=== PATIENT | female | born 1940 | race Caucasian/White ===

== ENCOUNTER → 2016-05-06 | Outpatient (CLI) | payer MEDICARE, OTHER ==
--- NOTE | 2016-05-06 14:13 | BD ---
EXAMINATION TYPE: MG DEXA axial skeleton. DATE OF EXAM: 05/06/2016 10:58 A CLINICAL HISTORY: Osteoporosis, M 80.O Height: 63.25inches Weight: 199 FRAX RISK QUESTIONS: Alcohol (3 or more units per day): no Family History (Parent hip fracture): no Glucocorticoids (More than 3mos): no (Ex: prednisone, prednisolone, methylprednisolone, dexamethasone, and hydrocortisone). History of Fracture in Adulthood: yes Secondary Osteoporosis: 1. Type 1 Diabetes: no 2. Hyperthyroidism: no 3. Menopause before 45: hysterectomy/menopause age 44 4. Malnutrition: no 5. Chronic liver disease: no Rheumatoid Arthritis: no Current Tobacco Use: no RISK FACTORS HISTORY OF: History of Wrist Fracture: yes When: about 17 years ago Surgery to (Wrist (left): yes When: about 17 years ago Other Fractures : ankle When: when in 40's, then again about 10 years later Family History of Osteoporosis: unknown Drink Alcohol: no Tobacco Use: quit about 2000 Active: yes Diet low in dairy products/other sources of calcium: at least one serving a day Postmenopausal woman: yes Take estrogen and/or progesterone medications: not now How long: about 22 years...last use age 67 Lost more than 2 inches in height since high school: yes Frequent falls: no Poor Health: no Hyperparathyroidism: no Adrenal Insufficiency: no MEDICATIONS: Prednisone or other steroids: no Thyroid Medications: no Osteoporosis Medications: no Additional Medications: blood pressure meds, calcium EXAM MEASUREMENTS: Bone mineral densitometry was performed using the [employer]. Bone mineral density as measured about the Lumbar spine is: ----- L1-L4(G/cm2): 1.032 T Score Values are as follows: ----- L2: -0.9 ----- L3: -1.0 ----- L4: -1.7 ----- L1-L4: -1.2 Bone mineral density has: Decreased -1.6% since study of: 03/13/2011 Bone mineral density about the R hip (g/cm2): 0.854 Bone mineral density about the L hip (g/cm2): 0.895 T Score values are as follows: -----R Neck: -1.3 -----L Neck: -1.0 -----R Intertrochanter: -1.2 -----L Intertrochanter: -0.9 Bone mineral density has: Decreased -1.0% since study of: 03/13/2011 IMPRESSION: Osteopenia (T Score between -2.5 and -1 as noted by T score values L4 & Right Hip There is slightly increased risk of fracture and the patient may be considered for treatment. Re-Screen 1-2 years. NOTE: T-SCORE=SD OF THE YOUNG ADULT MEAN.
--- NOTE | 2016-05-07 08:52 | MM ---
Reason for exam: screening (asymptomatic). Last mammogram was performed 1 year ago. History: Patient is postmenopausal and has history of other cancer at age 61. Took estrogen for 22 years. Physical Findings: A clinical breast exam by your physician is recommended on an annual basis and results should be correlated with mammographic findings. MG Screening Mammo w CAD Bilateral CC and MLO view(s) were taken. Prior study comparison: April 29, 2015, bilateral MG screening mammo w CAD. April 11, 2014, bilateral MG screening mammo w CAD. There are scattered fibroglandular densities. Finding: There are typically benign calcifications in both breasts. There is a chronic nodularity in the right breast. No significant changes in finding since April 29, 2015 and April 11, 2014. ASSESSMENT: Benign, BI-RAD 2 RECOMMENDATION: Routine screening mammogram of both breasts in 1 year.
== END | disposition home or self-care (01) ==
LOC: RADMAMWWP 10:54
PROVIDERS: ATTEND Internal Medicine Geriatric Medicine
DX: Z12.31 Encounter for screening mammogram for malignant neoplasm of breast (principal); M85.89 Other specified disorders of bone density and structure, multiple sites; M81.0 Age-related osteoporosis without current pathological fracture
CPT/HCPCS: 77080; G0202

== ENCOUNTER 2016-12-11 11:01 | Inpatient (IN) | payer MEDICARE, OTHER ==
[2016-12-11] MEDS ORDERED: ONDANSETRON 4 MG/2 ML VIAL IVP STA (13:14)
[2016-12-11] MEDS ORDERED: SODIUM CHLORIDE 0.9% 1,000 ML IV STA ×2 (13:14)
[2016-12-11 13:34] LABS: Anisocytosis Slight; Basophils % (A) 0 %; CHCM 35.5; Eosinophils % (A) 0 %; HDW 3.54; Luc # (Auto) 0.11; Luc % (Auto) 2; Lymphocytes # (A) 0.5 k/uL (1.0-4.8); Lymphocytes % (A) 12 %; MCH 31.8 pg (25.0-35.0); MCHC 33.9 g/dL (31.0-37.0); MCV 93.8 fL (80.0-100.0); Monocytes # (A) 0.6 k/uL (0-1.0); Monocytes % (A) 12 %; Neutrophils # (A) 3.3 k/uL (1.3-7.7); Neutrophils % (A) 73 %; Poikilocytosis Slight; RBC 5.01 m/uL (3.80-5.40); RDW 16.7 % (11.5-15.5); WBC 4.5 k/uL (3.8-10.6); WBC (Perox) 4.25
[2016-12-11 13:42] LABS: ALT 54 U/L (9-52); AST 42 U/L (14-36); Alkaline Phosphatase 81 U/L (38-126); Amylase <30 U/L (30-110); Anion Gap 12 mmol/L; Blood Urea Nitrogen 32 mg/dL (7-17); Calcium 9.8 mg/dL (8.4-10.2); Carbon Dioxide 27 mmol/L (22-30); Chloride 99 mmol/L (98-107); Glucose 224 mg/dL (74-99); Non-African American GFR(MDRD) >60 (>60 ml/min/1.73 sqM); Potassium 4.1 mmol/L (3.5-5.1); Sodium 138 mmol/L (137-145); Total Protein 7.7 g/dL (6.3-8.2)
--- NOTE | 2016-12-11 14:17 | XR ---
EXAMINATION TYPE: XR KUB DATE OF EXAM: 12/11/2016 2:09 PM CLINICAL HISTORY: Abdominal pain and constipation TECHNIQUE: Single supine KUB image of the abdomen is obtained. COMPARISON: None. FINDINGS: Multiple air-fluid levels predominating within large bowel, however some are seen within sm all bowel loops that are mildly dilated measuring 3.9 cm. Large bowel is nondilated measuring 7.8 cm at the cecum. Right upper quadrant scattered surgical clips are seen as well as atheromatous changes of the splenic artery. Surgical clips are also noted within the right hemipelvis as well as atheromat ous changes of the femoral arteries. There is a paucity of bowel gas within the rectum and a moderate amount of retained stool within the visualized colon. Degenerative changes are appreciated of the thoracolumbar spine. IMPRESSION: Air-fluid levels within mildly dilated small bowel and nondilated large bowel, most suggestive of ile us although early partial small bowel obstruction is a consideration. Short-term progress abdominal r adiographs are recommended to evaluate for progression/resolution.
--- NOTE | 2016-12-11 14:21 | ED ---
Abdominal Pain HPI - General Source: patient, RN notes reviewed, old records reviewed Mode of arrival: wheelchair Limitations: no limitations <Nuzhat Kohli - Last Filed: 12/11/16 15:09> <Arturo Quijano - Last Filed: 12/11/16 15:18> - General Chief Complaint: Abdominal Pain Stated Complaint: NAUSEA, VOMITING Time Seen by Provider: 12/11/16 12:56 - History of Present Illness Initial Comments: 76-year-old female presenting to the emergency Department chief complaint of lack of bowel movements for the past 7 days. Patient reports that she's now started to vomit. She reports she has a history of hiatal hernia which was repaired a few years ago. She states that since then she's HAD some problems with having bowel movements. Patient reports that over the past 7 days she has not passed any gas, and feels very full and distended. Patient reports that 3 days ago she did try to take Dulcolax, without any relief. Patient reports that her vomit has started to turn clear, denies hematemesis. Surgical history includes hernia repair, right-sided nephrectomy, cholecystectomy, total hysterectomy. (Nuzhat Kohli) - Related Data Home Medications Medication Instructions Recorded Confirmed Calcium Carbonate [Calcium] 600 mg PO BID 12/11/16 12/11/16 Fish Oil/Dha/Epa [Fish Oil 1,200 1 cap PO BID 12/11/16 12/11/16 mg Fish Oil] Lactulose 20 gm PO DAILY 12/11/16 12/11/16 Metoclopramide [Reglan] 5 mg PO DAILY 12/11/16 12/11/16 Metoprolol Succinate [Toprol XL] 25 mg PO DAILY 12/11/16 12/11/16 Multivitamins, Thera [Multivitamin 1 tab PO DAILY 12/11/16 12/11/16 (formulary)] Omeprazole [PriLOSEC] 40 mg PO DAILY 12/11/16 12/11/16 Potassium Chloride [K-Tab ER] 10 meq PO DAILY 12/11/16 12/11/16 Tolterodine Tartrate [Detrol LA] 4 mg PO BID 12/11/16 12/11/16 Triamterene-Hctz 37.5-25Mg 1 tab PO DAILY 12/11/16 12/11/16 [Maxzide 37.5-25] cloNIDine HCL [Catapres] 0.1 mg PO BID 12/11/16 12/11/16 metFORMIN HCL [Glucophage] 500 mg PO BID 12/11/16 12/11/16 Allergies Allergy/AdvReac Type Severity Reaction Status Date / Time No Known Allergies Allergy Verified 12/11/16 14:14 Review of Systems ROS Other: All systems not noted in ROS Statement are negative. <SeunNuzhat - Last Filed: 12/11/16 15:09> ROS Other: All systems not noted in ROS Statement are negative. <Arturo Quijano - Last Filed: 12/11/16 15:18> ROS Statement: Those systems with pertinent positive or pertinent negative responses have been documented in the HPI. Past Medical History Past Medical History: Cancer, Diabetes Mellitus, Hypertension Additional Past Medical History / Comment(s): HH, kidney and bladder cancer Past Surgical History: Cholecystectomy, Hernia Repair, Hysterectomy Additional Past Surgical History / Comment(s): kidney removed Past Psychological History: No Psychological Hx Reported Smoking Status: Former smoker Past Alcohol Use History: None Reported Past Drug Use History: None Reported <Valencia Kohliily - Last Filed: 12/11/16 15:09> General Exam Limitations: no limitations General appearance: alert, in no apparent distress Head exam: Present: atraumatic, normocephalic, normal inspection Eye exam: Present: normal appearance, PERRL, EOMI. Absent: scleral icterus, conjunctival injection, periorbital swelling ENT exam: Present: normal exam, mucous membranes moist Neck exam: Present: normal inspection. Absent: tenderness, meningismus, lymphadenopathy Respiratory exam: Present: normal lung sounds bilaterally. Absent: respiratory distress, wheezes, rales, rhonchi, stridor Cardiovascular Exam: Present: regular rate, normal rhythm, normal heart sounds. Absent: systolic murmur, diastolic murmur, rubs, gallop, clicks GI/Abdominal exam: Present: soft, distended, diminished bowel sounds. Absent: tenderness, guarding, rebound, rigid Extremities exam: Present: normal inspection, full ROM, normal capillary refill. Absent: tenderness, pedal edema, joint swelling, calf tenderness Back exam: Present: normal inspection Neurological exam: Present: alert, oriented X3, CN II-XII intact Psychiatric exam: Present: normal affect, normal mood Skin exam: Present: warm, dry, intact, normal color. Absent: rash <Nuzhat Kohli - Last Filed: 12/11/16 15:09> <Arturo Quijano - Last Filed: 12/11/16 15:18> - General Exam Comments Initial Comments: 76-year-old female, patient does not appear to be in any acute distress. ( Nuzhat Kohli) Medical Decision Making - Lab Data Result diagrams: 12/11/16 13:23 12/11/16 13:23 - Radiology Data Radiology results: report reviewed <Nuzhat Kohli - Last Filed: 12/11/16 15:09> - Lab Data Result diagrams: 12/11/16 13:23 12/11/16 13:23 <Arturo Quijano - Last Filed: 12/11/16 15:18> - Medical Decision Making 76-year-old female presents the ED chief complaint of unable to have a bowel movement for the past 7 days. She did try to take Dulcolax at home and an enema but did not have any relief. Patient is somewhat tender in the abdomen. Difficult to hear bowel sounds. Patient abdominal x-ray does show air-fluid levels, suggesting ileus or possible SBO. Patient received NG tube. 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 (Nuzhat Kohli) Medical decision making; the patient 76-year-old female who reports that she has not had a bowel movement nor passed flatus for 7 days. 2 days ago she started having nausea and vomiting. At that time she had taken 3 Dulcolax and fleets enema without any relief. The patient is not taking any pain medications that would normally cause constipation. Denies problems with constipation. The patient's past surgeries include hiatal hernia repair by Dr. Ch, she's also had a gallbladder, appendectomy and hysterectomy. Patient's white count is 4.5 hemoglobin 16 hematocrit of 47. Amylase lipase normal limits. BUN 32 creatinine 0.7 GFR greater than 60. Glucose elevated at 224. X -ray of the abdomen was done and reviewed by radiologist's final impression is air fluid levels within the mildly dilated small bowel and nondilated large bowel most suggestive of ileus although early partial small bowel obstruction is a consideration. Short-term progress abdominal radiographs are recommended to evaluate for progression resolution. As read by Dr. Carrillo I examined the patient she is tender to palpation mild voluntary guarding in the epigastric region with hypoactive bowel sounds. Vital signs are reviewed. I discussed the case with Dr. Montes on-call for Dr. Rg. Patient be admitted to the general surgeon Dr. Ch. Dr. Mosley was notified and requests that Dr. Dr. Salazar be notified. Dr. Salazar was notified. (Arturo Quijano) - Lab Data Lab Results 12/11/16 12/11/16 12/11/16 Range/Units 13:23 13:23 15:00 WBC 4.5 (3.8-10.6) k/uL RBC 5.01 (3.80-5.40) m/uL Hgb 16.0 (11.4-16.0) gm/dL Hct 47.0 H (34.0-46.0) % MCV 93.8 (80.0-100.0) fL MCH 31.8 (25.0-35.0) pg MCHC 33.9 (31.0-37.0) g/dL RDW 16.7 H (11.5-15.5) % Plt Count 231 (150-450) k/uL Neutrophils % 73 % Lymphocytes % 12 % Monocytes % 12 % Eosinophils % 0 % Basophils % 0 % Neutrophils # 3.3 (1.3-7.7) k/uL Lymphocytes # 0.5 L (1.0-4.8) k/uL Monocytes # 0.6 (0-1.0) k/uL Eosinophils # 0.0 (0-0.7) k/uL Basophils # 0.0 (0-0.2) k/uL Poikilocytosis Slight Anisocytosis Slight Sodium 138 (137-145) mmol/L Potassium 4.1 (3.5-5.1) mmol/L Chloride 99 (98-107) mmol/L Carbon Dioxide 27 (22-30) mmol/L Anion Gap 12 mmol/L BUN 32 H (7-17) mg/dL Creatinine 0.72 (0.52-1.04) mg/dL Est GFR (MDRD) Af Amer >60 (>60 ml/min/1.73 sqM) Est GFR (MDRD) Non-Af >60 (>60 ml/min/1.73 sqM) Glucose 224 H (74-99) mg/dL Calcium 9.8 (8.4-10.2) mg/dL Total Bilirubin 2.0 H (0.2-1.3) mg/dL AST 42 H (14-36) U/L ALT 54 H (9-52) U/L Alkaline Phosphatase 81 (38-126) U/L Total Protein 7.7 (6.3-8.2) g/dL Albumin 4.6 (3.5-5.0) g/dL Amylase <30 L (30-110) U/L Lipase 23 (23-300) U/L Urine Color Yellow Urine Appearance Clear (Clear) Urine pH 5.5 (5.0-8.0) Ur Specific [place] 1.022 (1.001-1.035) Urine Protein 2+ H (Negative) Urine Glucose (UA) Trace H (Negative) Urine Blood Negative (Negative) Urine Nitrite Negative (Negative) Urine Bilirubin Negative (Negative) Urine Urobilinogen <2.0 (<2.0) mg/dL Ur Leukocyte Esterase Negative (Negative) Urine RBC <1 (0-5) /hpf Urine WBC <1 (0-5) /hpf Ur Squamous Epith Cells <1 (0-4) /hpf Urine Mucus Rare H (None) /hpf - Radiology Data Air-fluid levels within mildly dilated small bowel and none dilated large bowel , suggestive of ileus although at least partial small bowel obstruction is a consideration. Short-term progress abdominal radiographs are recommended, to evaluate for progression. (Nuzhat Kohli) Disposition Time of Disposition: 15:03 <Nuzhat Kohli - Last Filed: 12/11/16 15:09> <Arturo Quijano - Last Filed: 12/11/16 15:18> Clinical Impression: Bowel obstruction, Diabetes Disposition: ADMITTED IP TO THIS HOSP Condition: Stable Referrals: Hiram Rg MD [Primary Care Provider] - 1-2 days
[2016-12-11] MEDS ORDERED: LIDOCAINE URO-JET JELLY 2% 5 ML KIT URETHRAL ONE (15:01)
[2016-12-11] MEDS ORDERED: NALOXONE 0.4 MG/ML 1 ML VIAL IV PRN (15:04)
[2016-12-11 15:17] LABS: Appearance,Urine Clear (Clear); Bilirubin,Urine Negative (Negative); Glucose,Urine (UA) Trace (Negative); Ketones,Urine 2+ (Negative); Leukocyte Esterase,Urine Negative (Negative); Mucus,Urine Rare /hpf; Nitrite,Urine Negative (Negative); PH, Urine 5.5 (5.0-8.0); Particle Count 2548; Protein,Urine 2+ (Negative); RBC,Urine <1 /hpf (0-5); Specific Gravity,Urine 1.022 (1.001-1.035); Squamous Epithelial Cell,Urine <1 /hpf (0-4); UA Billing (MACRO vs. MICRO) MICRO; Urobilinogen,Urine <2.0 mg/dL (<2.0); WBC,Urine <1 /hpf (0-5)
--- NOTE | 2016-12-11 15:50 | P.HPIM ---
History of Present Illness H&P Date: 12/11/16 Chief Complaint: Abdominal pain and no bowel movement This is a pleasant 76-year-old pleasant lady patient of Dr. Farfan. 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 This was followed later on with abdominal pain. The coloration, with episodes of vomiting dark food contents starting 2 days prior to admission. Patient denies any fever no chills, patient tried Dulcolax suppositories without any relief, patient was subsequently seen in emergency room and had a flat plate of the abdomen that shows early partial small bowel obstruction with air-fluid levels and a nondilated large bowel ileus although early partial small bowel obstruction is consideration, this is to plain films. Patient never had any previous symptoms similar to a bowel obstruction the past. Her last colonoscopy was performed by Dr. Salazar 7 years ago, cholecystectomy was performed by Dr. Mosley few years ago Review of Systems Constitutional: Reports as per HPI, Denies anorexia, Denies chills, Denies chronic headaches, Denies chronic pain, Denies daytime sleepiness, Denies fatigue, Denies fever, Denies lethargy, Denies malaise, Denies night sweats, Denies poor appetite, Denies sweats, Denies weakness, Denies weight gain, Denies weight loss Ears, nose, mouth and throat: Reports as per HPI, Denies ant. neck pain, Denies bleeding gums, Denies dental pain, Denies dysphagia, Denies epistaxis, Denies headache, Denies hoarseness, Denies mouth pain, Denies nasal congestion, Denies nasal discharge, Denies neck fullness/pressure, Denies neck lump, Denies nose pain, Denies odynophagia, Denies post-nasal drip, Denies sinus pain, Denies sinus pressure, Denies swelling in mouth, Denies swelling in throat, Denies sore throat, Denies vertigo, Denies voice changes Cardiovascular: Reports as per HPI, Denies chest pain, Denies claudication, Denies decreased exercise tolerance, Denies dyspnea on exertion, Denies edema, Denies high blood pressure, Denies irregular heart beat, Denies leg edema, Denies lightheadedness, Denies orthopnea, Denies palpitations, Denies paroxysmal nocturnal dyspnea, Denies phlebitis, Denies rapid heart beat, Denies shortness of breath, Denies syncope Respiratory: Reports as per HPI, Denies congestion, Denies cough, Denies cough with sputum, Denies dyspnea, Denies excessive sputum, Denies hemoptysis, Denies home oxygen, Denies pain, Denies pain on inspiration, Denies pleurisy, Denies respiratory infections, Denies sleep apnea, Denies snoring, Denies wheezing Gastrointestinal: Reports as per HPI, Reports abdominal pain, Reports constipation, Reports nausea, Reports vomiting, Denies belching, Denies bloating , Denies BRBPR, Denies change in bowel habits, Denies coffee ground emesis, Denies diarrhea, Denies dyspepsia, Denies early satiety, Denies excessive gas, Denies heartburn, Denies hematemesis, Denies hematochezia, Denies indigestion, Denies jaundice, Denies lactose intolerance, Denies loss of appetite, Denies melena Genitourinary: Reports as per HPI, Denies abnormal vaginal bleeding, Denies decreased libido, Denies difficulty conceiving, Denies difficulty voiding, Denies dysmenorrhea, Denies dyspareunia, Denies dysuria, Denies flank pain, Denies genital sores, Denies hematuria, Denies hot flashes, Denies incomplete emptying, Denies kidney stones, Denies menorrhagia, Denies mixed incontinence, Denies nocturia, Denies pelvic pain, Denies post void dribbling, Denies , Denies prolapse symptoms, Denies stress incontinence, Denies urge incontinence , Denies urgency, Denies urinary frequency, Denies vaginal discharge, Denies vaginal dryness, Denies vaginal itching, Denies vaginal odor Menstruation: Reports as per HPI, Denies amenorrhea, Denies amenorrhea on BC, Denies currently menstrual, Denies cycle < 21 days, Denies cycle > 35 days, Denies cycle variable, Denies menses 1-7 days, Denies menses 8 or > days, Denies menses variable, Denies period heavy, Denies period light, Denies period normal, Denies period spotting, Denies post hysterectomy, Denies postmenopausal , Denies premenarcheal Musculoskeletal: Reports as per HPI, Denies arm numbness/tingling, Denies atrophy, Denies fractures, Denies frequent falls, Denies gait dysfunction, Denies hot joints, Denies leg numbness/tingling, Denies limitation of motion, Denies loss of height, Denies low back pain, Denies morning stiffness, Denies muscle cramps, Denies muscle weakness, Denies myalgias, Denies neck pain, Denies neck stiffness, Denies prior amputations, Denies redness of joints, Denies shooting arm pain, Denies shooting leg pain Integumentary: Reports as per HPI Neurological: Reports as per HPI, Denies aphasia, Denies ataxia, Denies balance difficulties, Denies burning pain, Denies change in mentation, Denies change in smell/taste, Denies change in speech, Denies confusion, Denies convulsions, Denies double vision, Denies gait dysfunction, Denies head injury, Denies headaches, Denies hearing difficulties, Denies lack of coordination, Denies loss of vision, Denies memory loss, Denies migraines, Denies motor disturbance, Denies numbness, Denies paralysis, Denies paresthesias, Denies seizures, Denies sensory deficit, Denies spasticity, Denies syncope, Denies tic, Denies tingling , Denies transient paralysis, Denies tremors, Denies vertigo, Denies weakness, Denies visual changes Endocrine: Reports as per HPI Hematologic/Lymphatic: Reports as per HPI Allergic/Immunologic: Reports as per HPI Past Medical History Past Medical History: Cancer, Diabetes Mellitus, Hypertension Additional Past Medical History / Comment(s): HH, kidney and bladder cancer Past Surgical History: Cholecystectomy, Hernia Repair, Hysterectomy Additional Past Surgical History / Comment(s): kidney removed Past Psychological History: No Psychological Hx Reported Smoking Status: Former smoker Past Alcohol Use History: None Reported Past Drug Use History: None Reported - Past Family History Mother Family Medical History: Coronary Artery Disease (CAD) Father Family Medical History: Neurologic Disorder (Cerebral hemorrhage) Brother(s) Family Medical History: Cancer (Half brother with lung cancer) Sister(s) Family Medical History: Coronary Artery Disease (CAD) ( at 60 secondary CAD) Daughter(s) Family Medical History: No Reported History Son(s) Family Medical History: No Reported History Medications and Allergies Home Medications Medication Instructions Recorded Confirmed Type Calcium Carbonate [Calcium] 600 mg PO BID 12/11/16 12/11/16 History Fish Oil/Dha/Epa [Fish Oil 1,200 1 cap PO BID 12/11/16 12/11/16 History mg Fish Oil] Lactulose 20 gm PO DAILY 12/11/16 12/11/16 History Metoclopramide [Reglan] 5 mg PO DAILY 12/11/16 12/11/16 History Metoprolol Succinate [Toprol XL] 25 mg PO DAILY 12/11/16 12/11/16 History Multivitamins, Thera [Multivitamin 1 tab PO DAILY 12/11/16 12/11/16 History (formulary)] Omeprazole [PriLOSEC] 40 mg PO DAILY 12/11/16 12/11/16 History Potassium Chloride [K-Tab ER] 10 meq PO DAILY 12/11/16 12/11/16 History Tolterodine Tartrate [Detrol LA] 4 mg PO BID 12/11/16 12/11/16 History Triamterene-Hctz 37.5-25Mg 1 tab PO DAILY 12/11/16 12/11/16 History [Maxzide 37.5-25] cloNIDine HCL [Catapres] 0.1 mg PO BID 12/11/16 12/11/16 History metFORMIN HCL [Glucophage] 500 mg PO BID 12/11/16 12/11/16 History Allergies Allergy/AdvReac Type Severity Reaction Status Date / Time No Known Allergies Allergy Verified 12/11/16 14:14 Physical Exam Vitals: Vital Signs Temp Pulse Resp BP Pulse Ox 12/11/16 15:05 108 H 20 164/88 95 12/11/16 13:06 97.4 F L 107 H 17 163/90 92 L 12/11/16 11:27 98.2 F 110 H 20 166/96 99 Intake and Output 12/11/16 12/11/16 12/11/16 06:59 14:59 22:59 Other: Weight 88.451 kg Patient Weight 12/12/16 06:59 Weight 88.451 kg - Constitutional General appearance: cooperative, no acute distress - EENT Eyes: anicteric sclerae, EOMI, PERRLA, dentition normal, normal appearance ENT: NA/AT - Neck Neck: no lymphadenopathy, normal ROM, no other, no rigidity, no stridor, no thyromegaly - Respiratory Respiratory: bilateral: CTA, negative: diminished, dullness, rales, rhonchi - Cardiovascular Rhythm: regular Heart sounds: normal: S1, S2 Abnormal Heart Sounds: no systolic murmur, no diastolic murmur, no rub, no S3 Gallop, no S4 Gallop, no click, no other - Gastrointestinal General gastrointestinal: absent bowel sounds, distended, soft - Integumentary Integumentary: decreased turgor, normal - Neurologic Neurologic: CNII-XII intact - Musculoskeletal Musculoskeletal: gait normal, strength equal bilaterally - Psychiatric Psychiatric: A&O x's 3, appropriate affect, intact judgment & insight Results CBC & Chem 7: 12/11/16 13:23 12/11/16 13:23 Labs: Abnormal Lab Results - Last 24 Hours (Table) 12/11/16 12/11/16 12/11/16 Range/Units 13:23 13:23 15:00 Hct 47.0 H (34.0-46.0) % RDW 16.7 H (11.5-15.5) % Lymphocytes # 0.5 L (1.0-4.8) k/uL BUN 32 H (7-17) mg/dL Glucose 224 H (74-99) mg/dL Total Bilirubin 2.0 H (0.2-1.3) mg/dL AST 42 H (14-36) U/L ALT 54 H (9-52) U/L Amylase <30 L (30-110) U/L Urine Protein 2+ H (Negative) Urine Glucose (UA) Trace H (Negative) Urine Mucus Rare H (None) /hpf Laboratory Results WBC 4.5 k/uL (3.8-10.6) 12/11/16 13:23 RBC 5.01 m/uL (3.80-5.40) 12/11/16 13:23 Hgb 16.0 gm/dL (11.4-16.0) 12/11/16 13:23 Hct 47.0 % (34.0-46.0) H 12/11/16 13:23 MCV 93.8 fL (80.0-100.0) 12/11/16 13:23 MCH 31.8 pg (25.0-35.0) 12/11/16 13:23 MCHC 33.9 g/dL (31.0-37.0) 12/11/16 13:23 RDW 16.7 % (11.5-15.5) H 12/11/16 13:23 Plt Count 231 k/uL (150-450) 12/11/16 13:23 Neutrophils % 73 % 12/11/16 13:23 Lymphocytes % 12 % 12/11/16 13:23 Monocytes % 12 % 12/11/16 13:23 Eosinophils % 0 % 12/11/16 13:23 Basophils % 0 % 12/11/16 13:23 Neutrophils # 3.3 k/uL (1.3-7.7) 12/11/16 13:23 Lymphocytes # 0.5 k/uL (1.0-4.8) L 12/11/16 13:23 Monocytes # 0.6 k/uL (0-1.0) 12/11/16 13:23 Eosinophils # 0.0 k/uL (0-0.7) 12/11/16 13:23 Basophils # 0.0 k/uL (0-0.2) 12/11/16 13:23 Poikilocytosis Slight 12/11/16 13:23 Anisocytosis Slight 12/11/16 13:23 Sodium 138 mmol/L (137-145) 12/11/16 13:23 Potassium 4.1 mmol/L (3.5-5.1) 12/11/16 13:23 Chloride 99 mmol/L (98-107) 12/11/16 13:23 Carbon Dioxide 27 mmol/L (22-30) 12/11/16 13:23 Anion Gap 12 mmol/L 12/11/16 13:23 BUN 32 mg/dL (7-17) H 12/11/16 13:23 Creatinine 0.72 mg/dL (0.52-1.04) 12/11/16 13:23 Est GFR (MDRD) Af Amer >60 (>60 ml/min/1.73 sqM) 12/11/16 13:23 Est GFR (MDRD) Non-Af >60 (>60 ml/min/1.73 sqM) 12/11/16 13:23 Glucose 224 mg/dL (74-99) H 12/11/16 13:23 Calcium 9.8 mg/dL (8.4-10.2) 12/11/16 13:23 Total Bilirubin 2.0 mg/dL (0.2-1.3) H 12/11/16 13:23 AST 42 U/L (14-36) H 12/11/16 13:23 ALT 54 U/L (9-52) H 12/11/16 13:23 Alkaline Phosphatase 81 U/L (38-126) 12/11/16 13:23 Total Protein 7.7 g/dL (6.3-8.2) 12/11/16 13:23 Albumin 4.6 g/dL (3.5-5.0) 12/11/16 13:23 Amylase <30 U/L (30-110) L 12/11/16 13:23 Lipase 23 U/L (23-300) 12/11/16 13:23 Urine Color Yellow 12/11/16 15:00 Urine Appearance Clear (Clear) 12/11/16 15:00 Urine pH 5.5 (5.0-8.0) 12/11/16 15:00 Ur Specific [place] 1.022 (1.001-1.035) 12/11/16 15:00 Urine Protein 2+ (Negative) H 12/11/16 15:00 Urine Glucose (UA) Trace (Negative) H 12/11/16 15:00 Urine Ketones 2+ (Negative) H 12/11/16 15:00 Urine Blood Negative (Negative) 12/11/16 15:00 Urine Nitrite Negative (Negative) 12/11/16 15:00 Urine Bilirubin Negative (Negative) 12/11/16 15:00 Urine Urobilinogen <2.0 mg/dL (<2.0) 12/11/16 15:00 Ur Leukocyte Esterase Negative (Negative) 12/11/16 15:00 Urine RBC <1 /hpf (0-5) 12/11/16 15:00 Urine WBC <1 /hpf (0-5) 12/11/16 15:00 Ur Squamous Epith Cells <1 /hpf (0-4) 12/11/16 15:00 Urine Mucus Rare /hpf (None) H 12/11/16 15:00 Assessment and Plan Plan: 1. Acute obstipation with suspicious early small bowel obstruction, patient currently is an NG tube, consultation would be made with Dr. Mosley general surgery. 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 Diabetes mellitus type 2 hold off metformin and cover with NovoLog sliding scale 3. Hypertension currently on Catapres patch 0.1 twice a day which will be held along with Maxzide secondary to bowel obstruction, Catapres patch would be given or enalapril IV for blood pressure over 160 4. Elevated liver function test hepatitis panel will be obtained 5. Prior history of bladder cancer with nephrectomy right side, metastases to the bladder unknown activity at this time 6. DVT prophylaxis and GI prophylaxis, Lovenox and IV Pepcid
[2016-12-11 17:19] LABS: Glucose,Whole Blood 166 mg/dL (75-99)
--- NOTE | 2016-12-11 17:51 | P.GSCN ---
History of Present Illness Consult date: 12/11/16 Reason for Consult: a history of hypertension and diabetes mellitus medications as listed. Past history as above. Social history denies smoking or alcohol. Family history noncontributory. ALLERGIES none known. Systems review as above. No chest pain no cough hemoptysis. No blood per rectum. No vaginal discharge or bleeding or urinary symptoms. On examination the patient is well-built well-nourished somewhat dehydrated. Color satisfactory anicteric. She is somewhat overweight. The 88.45 kg. Head and neck otherwise normal. Heart regular lungs clear abdomen obese soft midline incision well healed no hernia no mass or organomegaly. Mild distention. No guarding or rebound. Extremities normal POST CLOSER intact. Wbc's normal hemoglobin 16. Renal function is normal. X-ray abdomen review as above. Impression possible colonic ileus. Doubt significant obstruction. Colonoscopy 7 years ago revealing diverticulosis without obstruction. History of diabetes mellitus. History of hypertension. History of several abdominal surgeries as above. Recommendation. Continue current medical management. We will obtain a CT of the abdomen and pelvis the with oral contrast only.. Further management will depend on the findings and a progression. We will continue to follow her along with you. Past Medical History Past Medical History: Cancer, Diabetes Mellitus, Hypertension Additional Past Medical History / Comment(s): HH, kidney and bladder cancer Past Surgical History: Cholecystectomy, Hernia Repair, Hysterectomy Additional Past Surgical History / Comment(s): kidney removed Past Psychological History: No Psychological Hx Reported Smoking Status: Former smoker Past Alcohol Use History: None Reported Past Drug Use History: None Reported - Past Family History Mother Family Medical History: Coronary Artery Disease (CAD) Father Family Medical History: Neurologic Disorder (Cerebral hemorrhage) Brother(s) Family Medical History: Cancer (Half brother with lung cancer) Sister(s) Family Medical History: Coronary Artery Disease (CAD) ( at 60 secondary CAD) Daughter(s) Family Medical History: No Reported History Son(s) Family Medical History: No Reported History Medications and Allergies Home Medications Medication Instructions Recorded Confirmed Type Calcium Carbonate [Calcium] 600 mg PO BID 12/11/16 12/11/16 History Fish Oil/Dha/Epa [Fish Oil 1,200 1 cap PO BID 12/11/16 12/11/16 History mg Fish Oil] Lactulose 20 gm PO DAILY 12/11/16 12/11/16 History Metoclopramide [Reglan] 5 mg PO DAILY 12/11/16 12/11/16 History Metoprolol Succinate [Toprol XL] 25 mg PO DAILY 12/11/16 12/11/16 History Multivitamins, Thera [Multivitamin 1 tab PO DAILY 12/11/16 12/11/16 History (formulary)] Omeprazole [PriLOSEC] 40 mg PO DAILY 12/11/16 12/11/16 History Potassium Chloride [K-Tab ER] 10 meq PO DAILY 12/11/16 12/11/16 History Tolterodine Tartrate [Detrol LA] 4 mg PO BID 12/11/16 12/11/16 History Triamterene-Hctz 37.5-25Mg 1 tab PO DAILY 12/11/16 12/11/16 History [Maxzide 37.5-25] cloNIDine HCL [Catapres] 0.1 mg PO BID 12/11/16 12/11/16 History metFORMIN HCL [Glucophage] 500 mg PO BID 12/11/16 12/11/16 History Allergies Allergy/AdvReac Type Severity Reaction Status Date / Time No Known Allergies Allergy Verified 12/11/16 14:14 Surgical - Exam Vital Signs Temp Pulse Resp BP Pulse Ox 98.2 F 110 H 20 166/96 99 12/11/16 11:27 12/11/16 11:27 12/11/16 11:27 12/11/16 11:27 12/11/16 11:27 Results - Labs 12/11/16 13:23 12/11/16 13:23 Abnormal Lab Results - Last 24 Hours (Table) 12/11/16 12/11/16 12/11/16 Range/Units 13:23 13:23 15:00 Hct 47.0 H (34.0-46.0) % RDW 16.7 H (11.5-15.5) % Lymphocytes # 0.5 L (1.0-4.8) k/uL BUN 32 H (7-17) mg/dL Glucose 224 H (74-99) mg/dL POC Glucose (mg/dL) (75-99) mg/dL Total Bilirubin 2.0 H (0.2-1.3) mg/dL AST 42 H (14-36) U/L ALT 54 H (9-52) U/L Amylase <30 L (30-110) U/L Urine Protein 2+ H (Negative) Urine Glucose (UA) Trace H (Negative) Urine Ketones 2+ H (Negative) Urine Mucus Rare H (None) /hpf 12/11/16 Range/Units 17:17 Hct (34.0-46.0) % RDW (11.5-15.5) % Lymphocytes # (1.0-4.8) k/uL BUN (7-17) mg/dL Glucose (74-99) mg/dL POC Glucose (mg/dL) 166 H (75-99) mg/dL Total Bilirubin (0.2-1.3) mg/dL AST (14-36) U/L ALT (9-52) U/L Amylase (30-110) U/L Urine Protein (Negative) Urine Glucose (UA) (Negative) Urine Ketones (Negative) Urine Mucus (None) /hpf Diabetes panel 12/11/16 Range/Units 13:23 Sodium 138 (137-145) mmol/L Potassium 4.1 (3.5-5.1) mmol/L Chloride 99 (98-107) mmol/L Carbon Dioxide 27 (22-30) mmol/L BUN 32 H (7-17) mg/dL Creatinine 0.72 (0.52-1.04) mg/dL Glucose 224 H (74-99) mg/dL Calcium 9.8 (8.4-10.2) mg/dL AST 42 H (14-36) U/L ALT 54 H (9-52) U/L Alkaline Phosphatase 81 (38-126) U/L Total Protein 7.7 (6.3-8.2) g/dL Albumin 4.6 (3.5-5.0) g/dL Calcium panel 12/11/16 Range/Units 13:23 Calcium 9.8 (8.4-10.2) mg/dL Albumin 4.6 (3.5-5.0) g/dL Pituitary panel 12/11/16 Range/Units 13:23 Sodium 138 (137-145) mmol/L Potassium 4.1 (3.5-5.1) mmol/L Chloride 99 (98-107) mmol/L Carbon Dioxide 27 (22-30) mmol/L BUN 32 H (7-17) mg/dL Creatinine 0.72 (0.52-1.04) mg/dL Glucose 224 H (74-99) mg/dL Calcium 9.8 (8.4-10.2) mg/dL Adrenal panel 12/11/16 Range/Units 13:23 Sodium 138 (137-145) mmol/L Potassium 4.1 (3.5-5.1) mmol/L Chloride 99 (98-107) mmol/L Carbon Dioxide 27 (22-30) mmol/L BUN 32 H (7-17) mg/dL Creatinine 0.72 (0.52-1.04) mg/dL Glucose 224 H (74-99) mg/dL Calcium 9.8 (8.4-10.2) mg/dL Total Bilirubin 2.0 H (0.2-1.3) mg/dL AST 42 H (14-36) U/L ALT 54 H (9-52) U/L Alkaline Phosphatase 81 (38-126) U/L Total Protein 7.7 (6.3-8.2) g/dL Albumin 4.6 (3.5-5.0) g/dL
[2016-12-11 18:04] VITALS: BMI 34.5
[2016-12-11] MEDS: INSULIN LISPRO (humaLOG) 300 UNIT/3 ML VIAL SQ SCH ×2 (18:15→21:08)
[2016-12-11] MEDS: ONDANSETRON 4 MG/2 ML VIAL IVP PRN (18:16)
[2016-12-11] MEDS: HYDROmorphone 1 MG/ML 1 ML SYRINGE IV PRN ×2 (18:16→21:07)
[2016-12-11] MEDS: IOHEXOL 350 MG/ML 25 ML BOTTLE (ORAL USE) PO PRN ×2 (19:31→20:19)
[2016-12-11 20:42] LABS: Glucose,Whole Blood 146 mg/dL (75-99)
[2016-12-11 21:06] LABS: Hemoglobin A1C 5.5 % (4.2-6.1)
[2016-12-11] MEDS: SODIUM CHLORIDE 0.9% 1,000 ML IV SCH (21:18)
[2016-12-12] MEDS: ONDANSETRON 4 MG/2 ML VIAL IVP PRN ×2 (06:27→16:43)
--- NOTE | 2016-12-12 07:34 | CT ---
EXAMINATION TYPE: CT abdomen pelvis wo con DATE OF EXAM: 12/11/2016 COMPARISON: 06/07/2012 HISTORY: Nausea and vomiting CT DLP: mGycm Automated exposure control for dose reduction was used. TECHNIQUE: Helical acquisition of images was performed from the lung bases through the pelvis. FINDINGS: There is mild linear density at the lung bases. There is no pleural effusion. There is apparently kale fredis at the gastric fundus. There are clips from cholecystectomy. Liver shows no focal defect. There are small cysts in the spleen less than 1 cm. There is no evidence of a pancreatic mass. There is vas cular calcification involving the celiac artery. Abdominal aorta is atheromatous.. Right kidney is absent. The left kidney shows no hydronephrosis. There is no retroperitoneal adenopat hy. There are multiple dilated fluid-filled loops of small bowel up to 3.8 cm. The terminal ileum is not dilated. There is no ascites. Bladder distends smoothly. There is no pelvic mass. I see no bony d estructive process. IMPRESSION: DILATED LOOPS OF SMALL BOWEL APPEAR NEW COMPARED TO OLD EXAM. A TRANSITION POINT IS NOT SEEN. THIS CO ULD RELATE TO PARTIAL MECHANICAL OBSTRUCTION OR ILEUS. RIGHT NEPHRECTOMY. MILD ATELECTASIS AT THE GABI G BASES SIMILAR TO OLD EXAM. 2 CM CORTICAL CYST NOTED ON THE UPPER POLE LEFT KIDNEY WITHOUT CHANGE.
[2016-12-12 07:37] LABS: Glucose,Whole Blood 161 mg/dL (75-99)
[2016-12-12] MEDS: HYDROmorphone 1 MG/ML 1 ML SYRINGE IV PRN ×4 (07:40→20:28)
[2016-12-12] MEDS: INSULIN LISPRO (humaLOG) 300 UNIT/3 ML VIAL SQ SCH ×4 (07:54→22:47)
[2016-12-12] MEDS ORDERED: NITROGLYCERIN 0.1MG/HR PATCH TRANSDERM SCH (09:00)
[2016-12-12 11:28] LABS: Glucose,Whole Blood 175 mg/dL (75-99)
[2016-12-12] MEDS ORDERED: BISACODYL 10 MG SUPP RECTAL STA (11:45)
[2016-12-12] MEDS: SCOPOLAMINE 1.5MG/72HR PATCH TRANSDERM SCH (11:49)
[2016-12-12] MEDS: PANTOPRAZOLE 40 MG/10 ML VIAL IVP SCH (11:50)
--- NOTE | 2016-12-12 11:50 | P.PN ---
Progress Note - Text The patient remains fairly stable. She however has not passed any flatus or had any bowel movement since admission. Some nausea. Has NG tube in place. A computed tomography scan with oral contrast only shows show some dilated loops of small bowel but no transition point is noted. There is gas and fluid in the colon wall. Ileus is suspected the rather than mechanical obstruction. On examination the patient is awake alert in no distress. Has NG tube in place. Vitals are stable. Temperature is normal. Abdomen is the not particularly distended. She is well overweight however. No mass or organomegaly significant tenderness noted. Some bowel sounds are noted. Laboratory studies are reviewed and unremarkable. Impression. Probably ileus rather than mechanical obstruction. Recommendation. We will add a Dulcolax suppository for today. Repeat abdominal x-rays tomorrow. Further management will depend on the clinical course.
[2016-12-12] MEDS ORDERED: cloNIDine 0.1 MG/24HR PATCH 1 PATCH PATCH TRANSDERM SCH (12:00)
--- NOTE | 2016-12-12 13:45 | P.PN ---
Subjective Principal diagnosis: Abdominal pain, partial obstruction, history of renal cell CA post nephrectomy, hypertension, type 2 diabetes, hyperlipidemia. 76-year-old female in my office patient is known to have history of kidney cancer post right sided nephrectomy history of bladder cancer post surgery history of type 2 diabetes hypertension hyperlipidemia multiple abdominal surgery. Patient presented to demurs department on 12/11/2016 with severe abdominal pain with nausea and vomiting with x-ray showed partial obstruction patient was admitted to the hospital seen general surgery had an NG tube continue hydration and pain management patient abdominal is very soft currently but she is not having any bowel movement she still have NG tube in was evaluated today with Dr. Salazar and repeat another x-ray if no recovery from partial obstruction the next 48 hours patient might require to go for surgery. Objective - Vital Signs Vital signs: Vital Signs Temp 97.7 F 12/12/16 07:28 Pulse 89 12/12/16 08:00 Resp 18 12/12/16 08:00 BP 171/98 12/12/16 07:28 Pulse Ox 94 L 12/12/16 07:28 Intake & Output 12/11/16 12/12/16 12/12/16 18:59 06:59 18:59 Intake Total 2600 Output Total 200 Balance 2400 Weight 88.451 kg Intake: Intake, IV Titration 1600 Amount Sodium Chloride 0.9% 1, 1600 000 ml @ 100 mls/hr IV . Q10H [facility] Rx#:[id number] Oral 1000 Output: Gastric Drainage 200 Other: Voiding Method Toilet Toilet # Voids 2 1 - Constitutional General appearance: Present: cooperative, no acute distress. Absent: average body habitus, disheveled, mild distress, morbidly obese, obese, severe distress , thin - EENT Eyes: Present: normal appearance. Absent: abnormal pupil, anicteric sclerae, disc margins sharp, edentulous, EOMI, PERRLA, fundus normal, photophobia, dentition normal, poor dentition, ptosis, scleral icterus ENT: Present: normal oropharynx. Absent: hard of hearing, hearing grossly normal, NA/AT, other, pharyngeal erythema, thrush, tonsillar exudates, tonsillar swelling Ears: bilateral: normal - Neck Neck: Present: normal ROM. Absent: lymphadenopathy, other, rigidity, stridor, thyromegaly Carotids: bilateral: upstroke normal Thyroid: bilateral: normal size - Respiratory Respiratory: bilateral: CTA, diminished - Cardiovascular Rhythm: regular Heart sounds: normal: S1, S2 Abnormal Heart Sounds: Present: systolic murmur - Gastrointestinal General gastrointestinal: Present: distended, tenderness. Absent: absent bowel sounds, decreased bowel sounds, hepatomegaly, hyperactive bowel sounds, normal bowel sounds, organomegaly, rigid, scaphoid, soft, splenomegaly, umbilical hernia, ventral hernia - Integumentary Integumentary: Present: normal, pale, rash. Absent: calor, cellulitis, cyanotic , decreased turgor, flushed, jaundiced, normal turgor, ulcer - Neurologic Neurologic: Present: CNII-XII intact - Musculoskeletal Musculoskeletal: Present: gait normal, generalized weakness, strength equal bilaterally - Psychiatric Psychiatric: Present: A&O x's 3, appropriate affect - Labs CBC & Chem 7: 12/11/16 13:23 12/11/16 13:23 Labs: Abnormal Lab Results - Last 24 Hours (Table) 12/11/16 12/11/16 12/11/16 Range/Units 13:23 15:00 17:17 BUN 32 H (7-17) mg/dL Glucose 224 H (74-99) mg/dL POC Glucose (mg/dL) 166 H (75-99) mg/dL Total Bilirubin 2.0 H (0.2-1.3) mg/dL AST 42 H (14-36) U/L ALT 54 H (9-52) U/L Amylase <30 L (30-110) U/L Urine Protein 2+ H (Negative) Urine Glucose (UA) Trace H (Negative) Urine Ketones 2+ H (Negative) Urine Mucus Rare H (None) /hpf 12/11/16 12/12/16 12/12/16 Range/Units 20:41 07:34 11:26 BUN (7-17) mg/dL Glucose (74-99) mg/dL POC Glucose (mg/dL) 146 H 161 H 175 H (75-99) mg/dL Total Bilirubin (0.2-1.3) mg/dL AST (14-36) U/L ALT (9-52) U/L Amylase (30-110) U/L Urine Protein (Negative) Urine Glucose (UA) (Negative) Urine Ketones (Negative) Urine Mucus (None) /hpf Assessment and Plan Plan: 1 acute abdominal pain: Continue NG tube continue pain management hydration. 2 partial bowel obstruction: Continue conservative management still have an NG tube for now repeat another x-ray by tomorrow if no recovering from obstruction might require to go for surgery. 3 hypertension more urgent: Patient is not able to take any her oral meds will be switch patient to Catapres patch TTS 1 for now and IV medication with Vasotec or labetalol. 4 abnormal liver function test: Repeat liver function tests daily. 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 6 type 2 diabetes: On Accu-Chek with sliding scales coverage metformin has been held for now. 7 pain management on Dilaudid IV as needed. 8 intractable nausea: Patient still on Zofran Will add Transderm scopolamine patch. 9 GI prophylaxis: Continue patient on enteral prozone IV. CODE STATUS: Full code.
[2016-12-12] MEDS: ENALAPRILAT 1.25 MG/ML 1 ML VIAL IVP PRN (14:43)
[2016-12-12] MEDS: SODIUM CHLORIDE 0.9% 1,000 ML IV SCH (14:43)
[2016-12-12 17:40] LABS: Glucose,Whole Blood 152 mg/dL (75-99)
[2016-12-12 22:13] LABS: Glucose,Whole Blood 164 mg/dL (75-99)
[2016-12-12] MEDS: HEPARIN SODIUM,PORCINE 5,000 UNIT/ML 1 ML VIAL SQ SCH (22:46)
[2016-12-13] MEDS: HYDROmorphone 1 MG/ML 1 ML SYRINGE IV PRN ×2 (00:27→09:14)
[2016-12-13] MEDS: SODIUM CHLORIDE 0.9% 1,000 ML IV SCH ×4 (00:54→23:57)
[2016-12-13 07:17] LABS: Glucose,Whole Blood 168 mg/dL (75-99)
[2016-12-13 07:37] LABS: Anisocytosis Slight; Basophils % (A) 0 %; CH 31.5; CHCM 33.2; Eosinophils % (A) 0 %; HCT 41.2 % (34.0-46.0); HDW 3.83; Hypochromasia Slight; Luc % (Auto) 2; Lymphocytes # (A) 0.6 k/uL (1.0-4.8); Lymphocytes % (A) 11 %; MCH 32.4 pg (25.0-35.0); MCHC 33.9 g/dL (31.0-37.0); MCV 95.7 fL (80.0-100.0); Mean Platelet Volume 8.3; Monocytes # (A) 0.4 k/uL (0-1.0); Monocytes % (A) 8 %; Neutrophils # (A) 4.3 k/uL (1.3-7.7); Neutrophils % (A) 79 %; Poikilocytosis Slight; RBC 4.31 m/uL (3.80-5.40); WBC 5.4 k/uL (3.8-10.6); WBC (Perox) 5.14
--- NOTE | 2016-12-13 07:53 | XR ---
EXAMINATION TYPE: XR abdomen complete w decub DATE OF EXAM: 12/13/2016 COMPARISON: 12/11/2016 INDICATION: Small bowel obstruction TECHNIQUE: Abdomen is examined in supine and upright left lateral decubitus views. FINDINGS: Nasogastric tube is present with tip in the distal esophageal region. No free air is under the diaphr agm. Surgical clips are in the right upper quadrant. There are dilated small bowel loops containing air wi thin the abdomen. Some contrast present within the ascending colon. Differential air-fluid levels are not evident. Findings can be related to partial small bowel obstruction or ileus. IMPRESSION: 1. Partial small bowel obstruction. Ileus could be considered. 2. Nasogastric tube insertion as the tip located in the distal esophageal region, this could be advan cecilio 10 cm.
[2016-12-13 08:19] LABS: ALT 101 U/L (9-52); AST 80 U/L (14-36); Alkaline Phosphatase 70 U/L (38-126); Anion Gap 10 mmol/L; Blood Urea Nitrogen 24 mg/dL (7-17); Calcium 8.3 mg/dL (8.4-10.2); Carbon Dioxide 25 mmol/L (22-30); Chloride 108 mmol/L (98-107); Glucose 176 mg/dL (74-99); Non-African American GFR(MDRD) >60 (>60 ml/min/1.73 sqM); Potassium 4.1 mmol/L (3.5-5.1); Sodium 143 mmol/L (137-145); Total Bilirubin 1.3 mg/dL (0.2-1.3); Total Protein 5.8 g/dL (6.3-8.2)
[2016-12-13] MEDS: ONDANSETRON 4 MG/2 ML VIAL IVP PRN ×2 (09:14→15:35)
[2016-12-13] MEDS: PANTOPRAZOLE 40 MG/10 ML VIAL IVP SCH (09:15)
[2016-12-13] MEDS: HEPARIN SODIUM,PORCINE 5,000 UNIT/ML 1 ML VIAL SQ SCH ×2 (09:15→22:00)
[2016-12-13] MEDS: INSULIN LISPRO (humaLOG) 300 UNIT/3 ML VIAL SQ SCH ×4 (09:15→22:00)
[2016-12-13 11:16] LABS: Glucose,Whole Blood 157 mg/dL (75-99)
--- NOTE | 2016-12-13 11:30 | P.PN ---
Subjective Principal diagnosis: Abdominal pain, partial obstruction, history of renal cell CA post nephrectomy, hypertension, type 2 diabetes, hyperlipidemia. 76-year-old female in my office patient is known to have history of kidney cancer post right sided nephrectomy history of bladder cancer post surgery history of type 2 diabetes hypertension hyperlipidemia multiple abdominal surgery. Patient presented to demurs department on 12/11/2016 with severe abdominal pain with nausea and vomiting with x-ray showed partial obstruction patient was admitted to the hospital seen general surgery had an NG tube continue hydration and pain management patient abdominal is very soft currently but she is not having any bowel movement she still have NG tube in was evaluated today with Dr. Salazar and repeat another x-ray if no recovery from partial obstruction the next 48 hours patient might require to go for surgery. 12/13/2016 she is feeling slightly better continue to have an NG tube her x-ray did not show much improvement still showing obstruction and patient most likely need to have surgery. Able to ambulate slightly her blood pressures under control and lab values and show major abnormality. Objective - Vital Signs Vital signs: Vital Signs Temp 98.2 F 12/13/16 10:42 Pulse 102 H 12/13/16 10:42 Resp 18 12/13/16 10:42 BP 156/90 12/13/16 10:42 Pulse Ox 92 L 12/13/16 10:42 Intake & Output 12/12/16 12/13/16 12/13/16 18:59 06:59 18:59 Intake Total 800 0 Output Total 100 0 Balance 700 0 Weight 88.451 kg Intake: Intake, IV Titration 800 Amount Sodium Chloride 0.9% 1, 800 000 ml @ 120 mls/hr IV . Q8H20M [facility] Rx#:[id number] Oral 0 0 Output: Urine 0 Oral Regurgitation 100 Other: Voiding Method Toilet Toilet # Voids 5 1 - Constitutional General appearance: Present: cooperative, disheveled, no acute distress. Absent : average body habitus, mild distress, morbidly obese, obese, severe distress, thin - EENT Eyes: Present: normal appearance. Absent: abnormal pupil, anicteric sclerae, disc margins sharp, edentulous, EOMI, PERRLA, fundus normal, photophobia, dentition normal, poor dentition, ptosis, scleral icterus ENT: Present: hard of hearing, normal oropharynx. Absent: hearing grossly normal, NA/AT, other, pharyngeal erythema, thrush, tonsillar exudates, tonsillar swelling Ears: bilateral: normal - Neck Neck: Present: normal ROM. Absent: lymphadenopathy, other, rigidity, stridor, thyromegaly Carotids: bilateral: upstroke normal Thyroid: bilateral: normal size - Respiratory Respiratory: bilateral: CTA, diminished - Cardiovascular Rhythm: irregularly irregular Heart sounds: normal: S1, S2 Abnormal Heart Sounds: Present: systolic murmur - Gastrointestinal General gastrointestinal: Present: decreased bowel sounds, tenderness. Absent: absent bowel sounds, distended, hepatomegaly, hyperactive bowel sounds, normal bowel sounds, organomegaly, rigid, scaphoid, soft, splenomegaly, umbilical hernia, ventral hernia - Integumentary Integumentary: Present: pale, rash. Absent: calor, cellulitis, cyanotic, decreased turgor, flushed, jaundiced, normal, normal turgor, ulcer - Neurologic Neurologic: Present: CNII-XII intact - Musculoskeletal Musculoskeletal: Present: gait normal, generalized weakness, strength equal bilaterally - Psychiatric Psychiatric: Present: A&O x's 3, appropriate affect - Labs CBC & Chem 7: 12/13/16 06:27 12/13/16 06:27 Labs: Abnormal Lab Results - Last 24 Hours (Table) 12/12/16 12/12/16 12/12/16 Range/Units 11:26 17:21 22:08 RDW (11.5-15.5) % Lymphocytes # (1.0-4.8) k/uL Chloride (98-107) mmol/L BUN (7-17) mg/dL Glucose (74-99) mg/dL POC Glucose (mg/dL) 175 H 152 H 164 H (75-99) mg/dL Calcium (8.4-10.2) mg/dL AST (14-36) U/L ALT (9-52) U/L Total Protein (6.3-8.2) g/dL Albumin (3.5-5.0) g/dL 12/13/16 12/13/16 12/13/16 Range/Units 06:27 06:27 07:14 RDW 16.0 H (11.5-15.5) % Lymphocytes # 0.6 L (1.0-4.8) k/uL Chloride 108 H (98-107) mmol/L BUN 24 H (7-17) mg/dL Glucose 176 H (74-99) mg/dL POC Glucose (mg/dL) 168 H (75-99) mg/dL Calcium 8.3 L (8.4-10.2) mg/dL AST 80 H (14-36) U/L ALT 101 H (9-52) U/L Total Protein 5.8 L (6.3-8.2) g/dL Albumin 3.3 L (3.5-5.0) g/dL 12/13/16 Range/Units 11:11 RDW (11.5-15.5) % Lymphocytes # (1.0-4.8) k/uL Chloride (98-107) mmol/L BUN (7-17) mg/dL Glucose (74-99) mg/dL POC Glucose (mg/dL) 157 H (75-99) mg/dL Calcium (8.4-10.2) mg/dL AST (14-36) U/L ALT (9-52) U/L Total Protein (6.3-8.2) g/dL Albumin (3.5-5.0) g/dL Assessment and Plan Plan: 1 acute abdominal pain: Continue NG tube continue pain management hydration. Still on x-ray showing obstruction most likely will require to have surgery. 2 partial bowel obstruction: Continue conservative management still have an NG tube for now repeat another x-ray by tomorrow if no recovering from obstruction might require to go for surgery. 3 hypertension more urgent: Patient is not able to take any her oral meds will be switch patient to Catapres patch TTS 1 for now and IV medication with Vasotec or labetalol. If blood pressure is higher with switch her Catapres-TTS- 1 to TTS 2 4 abnormal liver function test: Repeat liver function tests daily. 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 6 type 2 diabetes: On Accu-Chek with sliding scales coverage metformin has been held for now. 7 pain management on Dilaudid IV as needed. 8 intractable nausea: Patient still on Zofran Will add Transderm scopolamine patch. 9 GI prophylaxis: Continue patient on enteral prozone IV. CODE STATUS: Full code.
[2016-12-13] MEDS: MORPHINE SULFATE 2 MG/ML SYRINGE IVP PRN ×2 (11:56→16:50)
--- NOTE | 2016-12-13 12:48 | P.PN ---
Progress Note - Text The patient remains fairly stable. Still no flatus or bowel movement. Minimal abdominal pain or discomfort however. Abdominal x-ray this morning shows still some small bowel loops that that out dilated though no air-fluid levels. There is contrast in the descending colon from her computed tomography scan 2 days ago. On examination the patient is awake alert in no distress. Temperature is normal. Vitals are stable. Abdomen abdomen is soft with the mild diffuse tenderness but no guarding or rebound or rigidity. No mass or organomegaly and in particular no hernias are noted. Impression. Suspect partial small bowel obstruction. Does not seem to be improving. We will repeat abdominal films tomorrow and if still no improvement would recommend surgical intervention namely a laparoscopic exam with possible lysis of adhesions.
[2016-12-13 17:17] LABS: Glucose,Whole Blood 152 mg/dL (75-99)
[2016-12-13 20:32] LABS: Glucose,Whole Blood 151 mg/dL (75-99)
[2016-12-14] MEDS: ONDANSETRON 4 MG/2 ML VIAL IVP PRN ×2 (00:05→07:55)
[2016-12-14] MEDS: MORPHINE SULFATE 2 MG/ML SYRINGE IVP PRN ×5 (00:06→23:49)
[2016-12-14 07:01] LABS: Glucose,Whole Blood 174 mg/dL (75-99)
[2016-12-14] MEDS: SODIUM CHLORIDE 0.9% 1,000 ML IV SCH ×3 (07:18→19:13)
[2016-12-14 07:39] LABS: ALT 167 U/L (9-52); AST 110 U/L (14-36); Alkaline Phosphatase 81 U/L (38-126); Anion Gap 11 mmol/L; Blood Urea Nitrogen 18 mg/dL (7-17); Calcium 8.6 mg/dL (8.4-10.2); Carbon Dioxide 24 mmol/L (22-30); Chloride 112 mmol/L (98-107); Glucose 174 mg/dL (74-99); Non-African American GFR(MDRD) >60 (>60 ml/min/1.73 sqM); Potassium 3.9 mmol/L (3.5-5.1); Sodium 147 mmol/L (137-145); Total Bilirubin 1.3 mg/dL (0.2-1.3); Total Protein 6.1 g/dL (6.3-8.2)
[2016-12-14] MEDS: ENALAPRILAT 1.25 MG/ML 1 ML VIAL IVP PRN (07:51)
--- NOTE | 2016-12-14 08:04 | XR ---
EXAMINATION TYPE: XR abdomen 2V DATE OF EXAM: 12/14/2016 COMPARISON: 12/13/2016 HISTORY: Pain TECHNIQUE: One view abdominal series FINDINGS: Bilateral lower lobe consolidation and small effusion seen. NG tube is somewhat proximal to the level of the distal esophagus. There are dilated small bowel loops. Contrast is seen within the colon. Vascular calcifications and degenerative change of the spine noted. Arthropathy of the hips. Osteitis pubis condensans noted. Surgical clips in the abdomen. IMPRESSION: 1. NG tube is proximal within the distal esophagus correlate for repositioning. 2. Bilateral infiltrate and small effusion. 3. Persistent nonspecific gas pattern with contrast seen in the colon. Partial bowel obstruction giselle ins in the differential diagnosis correlate clinically.
[2016-12-14 08:25] LABS: Anisocytosis Slight; CHCM 32.9; HCT 43.6 % (34.0-46.0); HDW 3.65; Hypochromasia Slight; Immature Gran Flag Slight; MCH 31.4 pg (25.0-35.0); MCV 98.2 fL (80.0-100.0); Macrocytosis Slight; Mean Platelet Volume 9.3; Poikilocytosis Slight; RBC 4.44 m/uL (3.80-5.40); RDW 16.3 % (11.5-15.5); WBC (Perox) 10.02
[2016-12-14] MEDS: HEPARIN SODIUM,PORCINE 5,000 UNIT/ML 1 ML VIAL SQ SCH ×2 (08:34→23:49)
[2016-12-14] MEDS: PANTOPRAZOLE 40 MG/10 ML VIAL IVP SCH (08:35)
[2016-12-14] MEDS: INSULIN LISPRO (humaLOG) 300 UNIT/3 ML VIAL SQ SCH ×3 (08:35→23:47)
[2016-12-14 11:31] LABS: Add Differential Manual Differential
[2016-12-14 11:50] LABS: Glucose,Whole Blood 161 mg/dL (75-99)
[2016-12-14 11:53] LABS: Band Neutrophils % 1 %; Metamyelocytes % 6 %; Myelocytes % 1 %; Nucleated Red Blood Cells 1 /100 WBC (0-0); Total Cells Counted 200
[2016-12-14 11:54] LABS: WBC 10.1 k/uL (3.8-10.6)
[2016-12-14 12:01] LABS: Manual Review Performed
[2016-12-14] MEDS: IV FLUID CONTINUATION 1,000 ML IV ONE (14:41)
[2016-12-14] MEDS ORDERED: ONDANSETRON 4 MG/2 ML VIAL IVP ONE (15:10)
--- NOTE | 2016-12-14 15:36 | P.PN ---
Subjective 76-year-old female in my office patient is known to have history of kidney cancer post right sided nephrectomy history of bladder cancer post surgery history of type 2 diabetes hypertension hyperlipidemia multiple abdominal surgery. Patient presented to demurs department on 12/11/2016 with severe abdominal pain with nausea and vomiting with x-ray showed partial obstruction patient was admitted to the hospital seen general surgery had an NG tube continue hydration and pain management patient abdominal is very soft currently but she is not having any bowel movement she still have NG tube in was evaluated today with Dr. Salazar and repeat another x-ray if no recovery from partial obstruction the next 48 hours patient might require to go for surgery. 12/13/2016 she is feeling slightly better continue to have an NG tube her x-ray did not show much improvement still showing obstruction and patient most likely need to have surgery. Able to ambulate slightly her blood pressures under control and lab values and show major abnormality. 12/14: She remains without bowel movement or gas. She continues with same abdominal pain with no significant improvement. Abdominal x-ray this morning shows persistent nonspecific gas pattern with contrast in the colon. Partial bowel obstruction remains in the differential. Dr. Salazar is planning for surgical intervention today. Objective - Vital Signs Vital signs: Vital Signs Temp 97.9 F 12/14/16 14:56 Pulse 92 12/14/16 14:56 Resp 16 12/14/16 14:56 BP 173/96 12/14/16 15:31 Pulse Ox 92 L 12/14/16 14:56 Intake & Output 12/13/16 12/14/16 12/14/16 18:59 06:59 18:59 Intake Total 800 1420 Output Total 100 700 Balance 700 720 Weight 88.451 kg Intake: Intake, IV Titration 800 1320 Amount Sodium Chloride 0.9% 1, 800 1320 000 ml @ 120 mls/hr IV . Q8H20M [facility] Rx#:[id number] Oral 0 100 Output: Gastric Drainage 100 Urine 0 700 Other: Voiding Method Toilet Toilet Toilet # Voids 1 - Exam General appearance: Present: cooperative, disheveled, no acute distress. Absent : average body habitus, mild distress, morbidly obese, obese, severe distress, thin - EENT Eyes: Present: normal appearance. Absent: abnormal pupil, anicteric sclerae, disc margins sharp, edentulous, EOMI, PERRLA, fundus normal, photophobia, dentition normal, poor dentition, ptosis, scleral icterus ENT: Present: hard of hearing, normal oropharynx. Absent: hearing grossly normal, NA/AT, other, pharyngeal erythema, thrush, tonsillar exudates, tonsillar swelling Ears: bilateral: normal - Neck Neck: Present: normal ROM. Absent: lymphadenopathy, other, rigidity, stridor, thyromegaly Carotids: bilateral: upstroke normal Thyroid: bilateral: normal size - Respiratory Respiratory: bilateral: CTA, diminished - Cardiovascular Rhythm: irregularly irregular Heart sounds: normal: S1, S2 Abnormal Heart Sounds: Present: systolic murmur - Gastrointestinal General gastrointestinal: Present: decreased bowel sounds, tenderness. Absent: absent bowel sounds, distended, hepatomegaly, hyperactive bowel sounds, normal bowel sounds, organomegaly, rigid, scaphoid, soft, splenomegaly, umbilical hernia, ventral hernia - Integumentary Integumentary: Present: pale, rash. Absent: calor, cellulitis, cyanotic, decreased turgor, flushed, jaundiced, normal, normal turgor, ulcer - Neurologic Neurologic: Present: CNII-XII intact - Musculoskeletal Musculoskeletal: Present: gait normal, generalized weakness, strength equal bilaterally - Psychiatric Psychiatric: Present: A&O x's 3, appropriate affect - Labs CBC & Chem 7: 12/14/16 06:54 12/14/16 06:54 Labs: Abnormal Lab Results - Last 24 Hours (Table) 12/13/16 12/13/16 12/14/16 Range/Units 17:13 20:22 06:54 RDW 16.3 H (11.5-15.5) % Monocytes # (Manual) 1.01 H (0-1.0) k/uL Metamyelocytes # (Man) 0.61 H (0) k/uL Myelocytes # (Manual) 0.10 H (0) k/uL Nucleated RBCs 1 H (0-0) /100 WBC Sodium (137-145) mmol/L Chloride (98-107) mmol/L BUN (7-17) mg/dL Glucose (74-99) mg/dL POC Glucose (mg/dL) 152 H 151 H (75-99) mg/dL AST (14-36) U/L ALT (9-52) U/L Total Protein (6.3-8.2) g/dL 12/14/16 12/14/16 12/14/16 Range/Units 06:54 06:59 11:48 RDW (11.5-15.5) % Monocytes # (Manual) (0-1.0) k/uL Metamyelocytes # (Man) (0) k/uL Myelocytes # (Manual) (0) k/uL Nucleated RBCs (0-0) /100 WBC Sodium 147 H (137-145) mmol/L Chloride 112 H (98-107) mmol/L BUN 18 H (7-17) mg/dL Glucose 174 H (74-99) mg/dL POC Glucose (mg/dL) 174 H 161 H (75-99) mg/dL AST 110 H (14-36) U/L ALT 167 H (9-52) U/L Total Protein 6.1 L (6.3-8.2) g/dL Assessment and Plan Plan: 1 acute abdominal pain: Continue NG tube continue pain management hydration. Still on x-ray showing obstruction most likely will require to have surgery. 2 partial bowel obstruction: Continue conservative management still have an NG tube for now repeat another x-ray by tomorrow if no recovering from obstruction might require to go for surgery. 3 hypertension more urgent: Patient is not able to take any her oral meds will be switch patient to Catapres patch TTS 1 for now and IV medication with Vasotec or labetalol. If blood pressure is higher with switch her Catapres-TTS- 1 to TTS 2 4 abnormal liver function test: Repeat liver function tests daily. 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 6 type 2 diabetes: On Accu-Chek with sliding scales coverage metformin has been held for now. 7 pain management on Dilaudid IV as needed. 8 intractable nausea: Patient still on Zofran Will add Transderm scopolamine patch. 9 GI prophylaxis: Continue patient on enteral prozone IV. CODE STATUS: Full code. Impression and plan of care have been directed as dictated by the signing physician. Abby Wynn nurse practitioner acting as scribe for signing physician.
[2016-12-14] MEDS ORDERED: ROCURONIUM BROMIDE 10 MG/ML 10 ML VIAL IV ONE (15:38)
[2016-12-14] MEDS ORDERED: HYDROmorphone (PF) 1 MG/ML ONE (15:38)
[2016-12-14] MEDS ORDERED: PHENYLEPHRINE-0.9% NACL SYG 1 MG/10 ML SYRINGE ONE (15:38)
[2016-12-14] MEDS ORDERED: PROPOFOL 10 MG/ML 20 ML VIAL IV ONE (15:38)
[2016-12-14] MEDS ORDERED: GLYCOPYRROLATE 0.2 MG/ML 2 ML VIAL ONE (15:38)
[2016-12-14] MEDS ORDERED: LIDOCAINE 1% INJ 10MG/ML (20 ML MDV) ONE (15:38)
[2016-12-14] MEDS ORDERED: BUPIVACAINE (PF) 0.25% 30 ML VIAL SQ ONE (15:38)
[2016-12-14] MEDS ORDERED: fentaNYL (PF) 50 MCG/ML 2 ML AMP ONE (15:38)
[2016-12-14] MEDS ORDERED: MIDAZOLAM 2 MG/2 ML VIAL ONE (15:38)
[2016-12-14] MEDS ORDERED: NEOSTIGMINE 1 MG/ML 10 ML VIAL ONE (15:38)
[2016-12-14] MEDS ORDERED: LACTATED RINGERS 1,000 ML IV ONE ×2 (15:38→15:45)
[2016-12-14] MEDS ORDERED: SODIUM CHLORIDE 0.9% 50 ML with ceFAZolin 2,000 MG IV ONE ×2 (16:10)
--- NOTE | 2016-12-14 18:17 | P.OP ---
Date of Procedure: 12/14/16 Preoperative Diagnosis: Small bowel obstruction. Postoperative Diagnosis: Small bowel obstruction secondary to intra-abdominal adhesions in the right upper quadrant. Procedure(s) Performed: Laparoscopic exam with the extensive lysis of adhesions with open laparotomy and segmental small bowel resection. Implants: Anesthesia: CAMILA Surgeon: Juancarlos Salazar Cattle Brander #1: Lorrie Barrett Estimated Blood Loss (ml): 50 Pathology: other (Segmental small bowel) Condition: stable Disposition: PACU Indications for Procedure: The patient is a 76-year-old white female was admitted with abdominal pain cramping nausea vomiting constipation and CT and abdominal x-rays are consistent with the probably small bowel obstruction versus ileus. She was treated with nasogastric suction and IV fluids bowel rest over the last 3-1/2 days with no significant improvement confirmed by x-ray. Therefore a laparoscopic exam with possible laparotomy possible bowel resection was recommended and informed consent was obtained procedure have been explained to her including potential complication particular bleeding infection surrounding injury pain recurrence cardiac respiratory problems etc. she understood and agree to proceed. She had had multiple abdominal surgeries including open cholecystectomy hysterectomy . Operative Findings: Extensive intra-abdominal adhesions with obstruction of the mid to distal ileum secondary to adhesions. Description of Procedure: After induction of general endotracheal anesthesia Fleming catheter was placed. The abdominal wall was prepped with Betadine and draped. Local anesthetic was infiltrated into the skin and subcutaneous tissues in the left upper quadrant Marcaine 0.5% plain. A small transverse incision about 1 cm was made. The fascia was retracted and a Veress needle inserted under direct vision with a satisfactory saline drop test. The peritoneal cavity was then inflated with carbon dioxide to pressure approximately 15 mmHg. The needle was replaced with a 5 mm trocar and the laparoscope inserted. Immediately noted was very extensive intra-abdominal adhesions mostly of the omentum to the anterior abdominal wall. A 5 mm trocar was placed in the left lower quadrant and another 5 mm trocar in the right upper quadrant under direct vision. Extensive lysis of adhesions was accomplished to allow for adequate visualization of the peritoneal cavity dissecting the omentum off the abdominal wall. Once this was accomplished the small bowel was identified as was the cecum. The small bowel was run and the dilated loop of bowel was encountered in the right upper quadrant area. It was felt this was the site of the obstruction. This was carefully dissected the. However the adhesions were so indurated and difficult to visualize the small bowel from peritoneum that we decided to perform us minilaparotomy in the right upper quadrant area. All trochars were removed under direct vision. CO2 was evacuated. A transverse incision was made in the right upper quadrant to include the trocar site. Upon entering the peritoneal cavity the loop of small bowel that was stuck in the right upper quadrant was carefully dissected under direct vision until it was freed up. It was quite macerated and obviously the site of the obstruction the bowel wall being quite thin and attenuated. We therefore decided to resect the small bowel. An approximately 4-5 cm was resected with the 75 mm THANIA stapler. A functional end- to-end anastomosis was then accomplished with the 75 mm THANIA stapler and the resulting defect closed with a 60 mm TA stapler. The lumen was excellent there was good blood supply. The mesenteric defect was closed with running 3-0 Vicryl. Then run from the ligament of Treitz all the way to the ileocecal valve back and forth with no evidence of any further obstructive sites. The colon was palpated and there was no evidence of any mass or obstruction. She did have a colonoscopy within the last 3 years or so. The right gutter and peritoneal cavity were thoroughly irrigated hip. Closure then achieved with the running 0 PDS for the posterior sheath and peritoneum and #1 PDS for the anterior sheath. The subcutaneous tissues were irrigated thoroughly irrigated. The fascia was infiltrated with Marcaine. All skin incisions were closed with trinity. Dressings were applied. All counts were correct.
[2016-12-14 18:55] LABS: Glucose,Whole Blood 148 mg/dL (75-99)
[2016-12-14 20:17] LABS: Glucose,Whole Blood 155 mg/dL (75-99)
[2016-12-14] MEDS: ceFAZolin 2 GM in SODIUM CHLORIDE 0.9% 100 ML IVPB SCH (23:54)
[2016-12-15] MEDS: SODIUM CHLORIDE 0.9% 1,000 ML IV SCH ×2 (04:27→13:35)
[2016-12-15 07:03] LABS: CH 31.3; CHCM 33.4; HCT 41.2 % (34.0-46.0); HDW 3.86; HGB 13.7 gm/dL (11.4-16.0); Hypochromasia Slight; MCH 31.4 pg (25.0-35.0); MCHC 33.1 g/dL (31.0-37.0); MCV 94.7 fL (80.0-100.0); Mean Platelet Volume 8.2; Poikilocytosis Slight; RBC 4.36 m/uL (3.80-5.40); WBC 11.1 k/uL (3.8-10.6)
[2016-12-15 07:12] LABS: Potassium 3.3 mmol/L (3.5-5.1)
[2016-12-15 07:18] LABS: Glucose,Whole Blood 168 mg/dL (75-99)
[2016-12-15] MEDS: HEPARIN SODIUM,PORCINE 5,000 UNIT/ML 1 ML VIAL SQ SCH ×2 (09:09→20:52)
[2016-12-15] MEDS: INSULIN LISPRO (humaLOG) 300 UNIT/3 ML VIAL SQ SCH ×4 (09:09→20:53)
[2016-12-15] MEDS: PANTOPRAZOLE 40 MG/10 ML VIAL IVP SCH (09:09)
[2016-12-15] MEDS: ceFAZolin 2 GM in SODIUM CHLORIDE 0.9% 100 ML IVPB SCH ×2 (09:32→18:25)
[2016-12-15 12:27] LABS: Glucose,Whole Blood 150 mg/dL (75-99)
[2016-12-15] MEDS: SCOPOLAMINE 1.5MG/72HR PATCH TRANSDERM SCH (13:31)
[2016-12-15] MEDS: IV FLUID CONTINUATION 1,000 ML IV ONE (13:36)
--- NOTE | 2016-12-15 14:08 | P.PN ---
Subjective 76-year-old female in my office patient is known to have history of kidney cancer post right sided nephrectomy history of bladder cancer post surgery history of type 2 diabetes hypertension hyperlipidemia multiple abdominal surgery. Patient presented to demurs department on 12/11/2016 with severe abdominal pain with nausea and vomiting with x-ray showed partial obstruction patient was admitted to the hospital seen general surgery had an NG tube continue hydration and pain management patient abdominal is very soft currently but she is not having any bowel movement she still have NG tube in was evaluated today with Dr. Salazar and repeat another x-ray if no recovery from partial obstruction the next 48 hours patient might require to go for surgery. 12/13/2016 she is feeling slightly better continue to have an NG tube her x-ray did not show much improvement still showing obstruction and patient most likely need to have surgery. Able to ambulate slightly her blood pressures under control and lab values and show major abnormality. 12/14: She remains without bowel movement or gas. She continues with same abdominal pain with no significant improvement. Abdominal x-ray this morning shows persistent nonspecific gas pattern with contrast in the colon. Partial bowel obstruction remains in the differential. Dr. Salazar is planning for surgical intervention today. 12/15: Patient underwent laparoscopic exam with extensive lysis of adhesions with open laparotomy and segmental small bowel resection secondary to small bowel obstruction secondary to intra-abdominal adhesions in the right upper quadrant. Patient has had no postop complications. Hemoglobin stable at 13.7. Potassium will be replaced. Fleming catheter remains in place. Patient has not had a bowel movement and no flatus. Objective - Vital Signs Vital signs: Vital Signs Temp 97.3 F L 12/15/16 00:00 Pulse 102 H 12/15/16 00:00 Resp 16 12/15/16 04:00 BP 155/88 12/15/16 00:00 Pulse Ox 93 L 12/15/16 00:00 Intake & Output 12/14/16 12/15/16 12/15/16 18:59 06:59 18:59 Intake Total 1100 1590 Output Total 160 400 Balance 940 1190 Intake: IV 1100 1590 Sodium Chloride 0.9% 1, 1440 000 ml @ 120 mls/hr IV . Q8H20M [facility] Rx#:[id number] Output: Urine 110 400 Uretheral (Fleming) 400 Estimated Blood Loss 50 Other: Voiding Method Toilet Indwelling Catheter - Exam General appearance: Present: cooperative, disheveled, no acute distress. Absent : average body habitus, mild distress, morbidly obese, obese, severe distress, thin - EENT Eyes: Present: normal appearance. Absent: abnormal pupil, anicteric sclerae, disc margins sharp, edentulous, EOMI, PERRLA, fundus normal, photophobia, dentition normal, poor dentition, ptosis, scleral icterus ENT: Present: hard of hearing, normal oropharynx. Absent: hearing grossly normal, NA/AT, other, pharyngeal erythema, thrush, tonsillar exudates, tonsillar swelling Ears: bilateral: normal - Neck Neck: Present: normal ROM. Absent: lymphadenopathy, other, rigidity, stridor, thyromegaly Carotids: bilateral: upstroke normal Thyroid: bilateral: normal size - Respiratory Respiratory: bilateral: CTA, diminished - Cardiovascular Rhythm: irregularly irregular Heart sounds: normal: S1, S2 Abnormal Heart Sounds: Present: systolic murmur - Gastrointestinal General gastrointestinal: Present: decreased bowel sounds, tenderness. Absent: absent bowel sounds, distended, hepatomegaly, hyperactive bowel sounds, normal bowel sounds, organomegaly, rigid, scaphoid, soft, splenomegaly, umbilical hernia, ventral hernia - Integumentary Integumentary: Present: pale, rash. Absent: calor, cellulitis, cyanotic, decreased turgor, flushed, jaundiced, normal, normal turgor, ulcer - Neurologic Neurologic: Present: CNII-XII intact - Musculoskeletal Musculoskeletal: Present: gait normal, generalized weakness, strength equal bilaterally - Psychiatric Psychiatric: Present: A&O x's 3, appropriate affect - Labs CBC & Chem 7: 12/15/16 06:35 12/15/16 06:35 Labs: Abnormal Lab Results - Last 24 Hours (Table) 12/14/16 12/14/16 12/14/16 Range/Units 06:54 11:48 18:46 WBC (3.8-10.6) k/uL RDW (11.5-15.5) % Plt Count (150-450) k/uL Monocytes # (Manual) 1.01 H (0-1.0) k/uL Metamyelocytes # (Man) 0.61 H (0) k/uL Myelocytes # (Manual) 0.10 H (0) k/uL Nucleated RBCs 1 H (0-0) /100 WBC Sodium (137-145) mmol/L Potassium (3.5-5.1) mmol/L Chloride (98-107) mmol/L POC Glucose (mg/dL) 161 H 148 H (75-99) mg/dL 12/14/16 12/15/16 12/15/16 Range/Units 20:15 06:35 06:35 WBC 11.1 H (3.8-10.6) k/uL RDW 16.0 H (11.5-15.5) % Plt Count 143 L (150-450) k/uL Monocytes # (Manual) (0-1.0) k/uL Metamyelocytes # (Man) (0) k/uL Myelocytes # (Manual) (0) k/uL Nucleated RBCs (0-0) /100 WBC Sodium 146 H (137-145) mmol/L Potassium 3.3 L (3.5-5.1) mmol/L Chloride 113 H (98-107) mmol/L POC Glucose (mg/dL) 155 H (75-99) mg/dL 12/15/16 Range/Units 07:13 WBC (3.8-10.6) k/uL RDW (11.5-15.5) % Plt Count (150-450) k/uL Monocytes # (Manual) (0-1.0) k/uL Metamyelocytes # (Man) (0) k/uL Myelocytes # (Manual) (0) k/uL Nucleated RBCs (0-0) /100 WBC Sodium (137-145) mmol/L Potassium (3.5-5.1) mmol/L Chloride (98-107) mmol/L POC Glucose (mg/dL) 168 H (75-99) mg/dL Assessment and Plan Plan: 1 acute abdominal pain status post laparoscopic exam with extensive lysis of adhesions with open laparotomy and segmental small bowel resection Continue NG tube continue pain management hydration. 2 partial bowel obstruction, continue as in #1. 3 hypertension more urgent: Patient is not able to take any her oral meds will be switch patient to Catapres patch TTS 1 for now and IV medication with Vasotec or labetalol. If blood pressure is higher with switch her Catapres-TTS- 1 to TTS 2 4 abnormal liver function test: Repeat liver function tests daily. 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 6 type 2 diabetes: On Accu-Chek with sliding scales coverage metformin has been held for now. 7 pain management on Dilaudid IV as needed. 8 intractable nausea: Patient still on Zofran Will add Transderm scopolamine patch. 9 GI prophylaxis: Continue patient on enteral prozone IV. CODE STATUS: Full code. Impression and plan of care have been directed as dictated by the signing physician. Abby Wynn nurse practitioner acting as scribe for signing physician.
--- NOTE | 2016-12-15 14:58 | P.PN ---
Subjective Principal diagnosis: Small bowel obstruction 76yo F is POD #1 for Laparoscopic FÁTIMA and exploratory lap and small bowel resection for small bowel obstruction. Currently, the patient denies any pain and is tolerating NGT. She denies any bowel function. She has ambulated and has urinated. She has no complaints at this time. She denies fevers, chills, chest pain, SOB. Objective - Vital Signs Vital signs: Vital Signs Temp 97.3 F L 12/15/16 00:00 Pulse 102 H 12/15/16 08:00 Resp 16 12/15/16 08:00 BP 155/88 12/15/16 00:00 Pulse Ox 93 L 12/15/16 00:00 Intake & Output 12/14/16 12/15/16 12/15/16 18:59 06:59 18:59 Intake Total 1100 1590 Output Total 160 400 Balance 940 1190 Weight 88.451 kg Intake: IV 1100 1590 Sodium Chloride 0.9% 1, 1440 000 ml @ 120 mls/hr IV . Q8H20M [facility] Rx#:[id number] Output: Urine 110 400 Uretheral (Fleming) 400 Estimated Blood Loss 50 Other: Voiding Method Toilet Indwelling Catheter Indwelling Catheter - Constitutional General appearance: Present: no acute distress, obese - EENT Eyes: Present: EOMI, PERRLA, normal appearance ENT: Present: hearing grossly normal - Neck Neck: Present: normal ROM - Respiratory Respiratory: bilateral: CTA (no difficulty with respiration) - Cardiovascular Rhythm: regular Heart sounds: normal: S1, S2 - Gastrointestinal General gastrointestinal: Present: decreased bowel sounds, soft Localized gastrointestinal: surgical scar: midline (incision site C/D/I, appropriate tenderness) - Integumentary Integumentary: Present: normal, normal turgor - Neurologic Neurologic: Present: CNII-XII intact - Musculoskeletal Musculoskeletal: Present: generalized weakness - Psychiatric Psychiatric: Present: A&O x's 3, appropriate affect, intact judgment & insight - Labs CBC & Chem 7: 12/15/16 06:35 12/15/16 06:35 Labs: Abnormal Lab Results - Last 24 Hours (Table) 12/14/16 12/14/16 12/15/16 Range/Units 18:46 20:15 06:35 WBC 11.1 H (3.8-10.6) k/uL RDW 16.0 H (11.5-15.5) % Plt Count 143 L (150-450) k/uL Sodium (137-145) mmol/L Potassium (3.5-5.1) mmol/L Chloride (98-107) mmol/L POC Glucose (mg/dL) 148 H 155 H (75-99) mg/dL 12/15/16 12/15/16 12/15/16 Range/Units 06:35 07:13 12:12 WBC (3.8-10.6) k/uL RDW (11.5-15.5) % Plt Count (150-450) k/uL Sodium 146 H (137-145) mmol/L Potassium 3.3 L (3.5-5.1) mmol/L Chloride 113 H (98-107) mmol/L POC Glucose (mg/dL) 168 H 150 H (75-99) mg/dL Assessment and Plan (1) Bowel obstruction Narrative/Plan: POD#1 s/p exploratory lap and SBR Status: Acute Plan: - Continue NGT to [facility] - NPO, mt for ice chips - IVF - Awaiting bowel function - DVT prophylaxis - Med recs appreciated Time with Patient: Less than 30
[2016-12-15 15:20] LABS: Magnesium 1.7 mg/dL (1.6-2.3); Phosphorus 2.2 mg/dL (2.5-4.5)
[2016-12-15] MEDS: POTASSIUM CHLORIDE 20 MEQ, LIDOCAINE 2% INJ 20 MG in SODIUM CHLORIDE 0.9% 100 ML IVPB SCH ×2 (16:21→21:02)
[2016-12-15 16:42] LABS: Glucose,Whole Blood 134 mg/dL (75-99)
[2016-12-15 21:00] LABS: Glucose,Whole Blood 133 mg/dL (75-99)
[2016-12-15] MEDS: MORPHINE SULFATE 2 MG/ML SYRINGE IVP PRN (22:37)
[2016-12-16 07:11] LABS: Glucose,Whole Blood 117 mg/dL (75-99)
--- NOTE | 2016-12-16 07:39 | P.PN ---
Progress Note - Text The patient is afebrile. Vitals are stable. No flatus or stool as expected the at this time. She feels however every day better. Minimal discomfort. NG output is about 200 amalgams a shift. Abdomen is soft usual postoperative tenderness. Impression stable postop. Status post the lysis of adhesions with the segmental small bowel resection with anastomosis for obstruction. Recommendation continue NG tube. We'll DC Fleming today. Continued the ambulation. May have popsicles.
[2016-12-16 07:58] LABS: ALT 62 U/L (9-52); AST 31 U/L (14-36); Alkaline Phosphatase 69 U/L (38-126); Anion Gap 9 mmol/L; Blood Urea Nitrogen 13 mg/dL (7-17); Calcium 8.2 mg/dL (8.4-10.2); Carbon Dioxide 26 mmol/L (22-30); Chloride 113 mmol/L (98-107); Glucose 126 mg/dL (74-99); Non-African American GFR(MDRD) >60 (>60 ml/min/1.73 sqM); Potassium 3.2 mmol/L (3.5-5.1); Sodium 148 mmol/L (137-145); Total Bilirubin 1.2 mg/dL (0.2-1.3); Total Protein 5.1 g/dL (6.3-8.2)
[2016-12-16] MEDS: INSULIN LISPRO (humaLOG) 300 UNIT/3 ML VIAL SQ SCH ×4 (08:00→20:08)
[2016-12-16 08:13] LABS: CH 31.4; CHCM 33.1; HDW 3.78; HGB 12.7 gm/dL (11.4-16.0); Hypochromasia Slight; MCH 31.9 pg (25.0-35.0); MCHC 33.4 g/dL (31.0-37.0); MCV 95.6 fL (80.0-100.0); Mean Platelet Volume 8.8; Poikilocytosis Slight; RBC 3.97 m/uL (3.80-5.40); WBC 9.1 k/uL (3.8-10.6)
[2016-12-16] MEDS: PANTOPRAZOLE 40 MG/10 ML VIAL IVP SCH (09:16)
[2016-12-16] MEDS: HEPARIN SODIUM,PORCINE 5,000 UNIT/ML 1 ML VIAL SQ SCH ×2 (09:17→20:08)
[2016-12-16 11:52] LABS: Glucose,Whole Blood 147 mg/dL (75-99)
--- NOTE | 2016-12-16 13:41 | P.PN ---
Subjective 76-year-old female in my office patient is known to have history of kidney cancer post right sided nephrectomy history of bladder cancer post surgery history of type 2 diabetes hypertension hyperlipidemia multiple abdominal surgery. Patient presented to demurs department on 12/11/2016 with severe abdominal pain with nausea and vomiting with x-ray showed partial obstruction patient was admitted to the hospital seen general surgery had an NG tube continue hydration and pain management patient abdominal is very soft currently but she is not having any bowel movement she still have NG tube in was evaluated today with Dr. Salazar and repeat another x-ray if no recovery from partial obstruction the next 48 hours patient might require to go for surgery. 12/13/2016 she is feeling slightly better continue to have an NG tube her x-ray did not show much improvement still showing obstruction and patient most likely need to have surgery. Able to ambulate slightly her blood pressures under control and lab values and show major abnormality. 12/14: She remains without bowel movement or gas. She continues with same abdominal pain with no significant improvement. Abdominal x-ray this morning shows persistent nonspecific gas pattern with contrast in the colon. Partial bowel obstruction remains in the differential. Dr. Salazar is planning for surgical intervention today. 12/15: Patient underwent laparoscopic exam with extensive lysis of adhesions with open laparotomy and segmental small bowel resection secondary to small bowel obstruction secondary to intra-abdominal adhesions in the right upper quadrant. Patient has had no postop complications. Hemoglobin stable at 13.7. Potassium will be replaced. Fleming catheter remains in place. Patient has not had a bowel movement and no flatus. 12/16: Patient remains with NG tube in place. She is hoping that this will be removed tomorrow. No bowel movement, no flatus. She is found ambulating in her room without difficulty. No lightheadedness or dizziness. Blood sugars are running 117-147. Potassium will be replaced. Diet is nothing by mouth with ice chips, popsicles and chewing gum. Objective - Vital Signs Vital signs: Vital Signs Temp 98.2 F 12/16/16 08:00 Pulse 76 12/16/16 08:00 Resp 18 12/16/16 08:00 BP 156/78 12/16/16 08:00 Pulse Ox 94 L 12/16/16 08:00 Intake & Output 12/15/16 12/16/16 12/16/16 18:59 06:59 18:59 Intake Total 600 2500 Output Total 500 1350 Balance 100 1150 Weight 88.451 kg 88.451 kg Intake: IV 600 800 Sodium Chloride 0.9% 1, 600 800 000 ml @ 120 mls/hr IV . Q8H20M [facility] Rx#:[id number] Intake, IV Titration 1100 Amount Potassium Chloride 20 meq 300 Lidocaine 2% Inj 20 mg In Sodium Chloride 0.9% 100 ml @ 55.5 mls/hr IVPB Q2HR [facility] Rx#:[id number] Sodium Chloride 0.9% 1, 800 000 ml @ 120 mls/hr IV . Q8H20M [facility] Rx#:[id number] Oral 600 Output: Gastric Drainage 100 550 Urine 400 800 Other: Voiding Method Indwelling Catheter Toilet # Voids 1 2 - Exam General appearance: Present: cooperative, disheveled, no acute distress. Absent : average body habitus, mild distress, morbidly obese, obese, severe distress, thin - EENT Eyes: Present: normal appearance. Absent: abnormal pupil, anicteric sclerae, disc margins sharp, edentulous, EOMI, PERRLA, fundus normal, photophobia, dentition normal, poor dentition, ptosis, scleral icterus ENT: Present: hard of hearing, normal oropharynx. Absent: hearing grossly normal, NA/AT, other, pharyngeal erythema, thrush, tonsillar exudates, tonsillar swelling Ears: bilateral: normal - Neck Neck: Present: normal ROM. Absent: lymphadenopathy, other, rigidity, stridor, thyromegaly Carotids: bilateral: upstroke normal Thyroid: bilateral: normal size - Respiratory Respiratory: bilateral: CTA, diminished - Cardiovascular Rhythm: irregularly irregular Heart sounds: normal: S1, S2 Abnormal Heart Sounds: Present: systolic murmur - Gastrointestinal General gastrointestinal: Present: decreased bowel sounds, tenderness. Absent: absent bowel sounds, distended, hepatomegaly, hyperactive bowel sounds, normal bowel sounds, organomegaly, rigid, scaphoid, soft, splenomegaly, umbilical hernia, ventral hernia - Integumentary Integumentary: Present: pale, rash. Absent: calor, cellulitis, cyanotic, decreased turgor, flushed, jaundiced, normal, normal turgor, ulcer - Neurologic Neurologic: Present: CNII-XII intact - Musculoskeletal Musculoskeletal: Present: gait normal, generalized weakness, strength equal bilaterally - Psychiatric Psychiatric: Present: A&O x's 3, appropriate affect - Labs CBC & Chem 7: 12/16/16 07:01 12/16/16 07:01 Labs: Abnormal Lab Results - Last 24 Hours (Table) 12/15/16 12/15/16 12/15/16 Range/Units 06:35 12:12 16:31 RDW (11.5-15.5) % Plt Count (150-450) k/uL Sodium (137-145) mmol/L Potassium (3.5-5.1) mmol/L Chloride (98-107) mmol/L Glucose (74-99) mg/dL POC Glucose (mg/dL) 150 H 134 H (75-99) mg/dL Calcium (8.4-10.2) mg/dL Phosphorus 2.2 L (2.5-4.5) mg/dL ALT (9-52) U/L Total Protein (6.3-8.2) g/dL Albumin (3.5-5.0) g/dL 12/15/16 12/16/16 12/16/16 Range/Units 20:50 06:56 07:01 RDW 16.0 H (11.5-15.5) % Plt Count 135 L (150-450) k/uL Sodium (137-145) mmol/L Potassium (3.5-5.1) mmol/L Chloride (98-107) mmol/L Glucose (74-99) mg/dL POC Glucose (mg/dL) 133 H 117 H (75-99) mg/dL Calcium (8.4-10.2) mg/dL Phosphorus (2.5-4.5) mg/dL ALT (9-52) U/L Total Protein (6.3-8.2) g/dL Albumin (3.5-5.0) g/dL 12/16/16 Range/Units 07:01 RDW (11.5-15.5) % Plt Count (150-450) k/uL Sodium 148 H (137-145) mmol/L Potassium 3.2 L (3.5-5.1) mmol/L Chloride 113 H (98-107) mmol/L Glucose 126 H (74-99) mg/dL POC Glucose (mg/dL) (75-99) mg/dL Calcium 8.2 L (8.4-10.2) mg/dL Phosphorus (2.5-4.5) mg/dL ALT 62 H (9-52) U/L Total Protein 5.1 L (6.3-8.2) g/dL Albumin 2.7 L (3.5-5.0) g/dL Assessment and Plan Plan: 1 acute abdominal pain status post laparoscopic exam with extensive lysis of adhesions with open laparotomy and segmental small bowel resection Continue NG tube continue pain management hydration. 2 partial bowel obstruction, continue as in #1. 3 hypertension more urgent: Patient is not able to take any her oral meds will be switch patient to Catapres patch TTS 1 for now and IV medication with Vasotec or labetalol. If blood pressure is higher with switch her Catapres-TTS- 1 to TTS 2 4 abnormal liver function test: Repeat liver function tests daily. 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 6 type 2 diabetes: On Accu-Chek with sliding scales coverage metformin has been held for now. 7 pain management on Dilaudid IV as needed. 8 intractable nausea: Patient still on Zofran Will add Transderm scopolamine patch. 9 GI prophylaxis: Continue patient on enteral prozone IV. CODE STATUS: Full code. Impression and plan of care have been directed as dictated by the signing physician. Abby Wynn nurse practitioner acting as scribe for signing physician.
[2016-12-16] MEDS: POTASSIUM CHLORIDE 20 MEQ, LIDOCAINE 2% INJ 20 MG in SODIUM CHLORIDE 0.9% 100 ML IVPB SCH ×3 (15:09→19:48)
--- NOTE | 2016-12-16 15:40 | CDI ---
In responding to this query, please exercise your independent professional judgment. The [facility] Coding Staff and Clinical Documentation Specialists appreciate your assistance in clarifying documentation, maintaining compliance with coding guidelines, accurately documenting patients condition and capturing severity of illness. The fact that a question is asked does not imply that any particular answer is desired or expected. Communication forms are a method of clarifying documentation and are not made part of the Legal Health Record. Thank you in advance for your clarification. Last Revision, February 2015 Vilma Merida [address] [facility] [place] [address] Documentation Clarification Form Date: 12/16/2016 3:20:00 PM From: Keren Youngblood Admit Date: 12/11/2016 3:57:00 PM Patient Name: Meme Fitzpatrick Visit Number: [id number] Discharge Date: Dr. Juancarlos Salazar Dissecting the omentum off the abdominal wall was in your operative note. Patient history/risk factors: Small bowel obstruction Clinical Indicators: Small bowel obstruction secondary to intra-abdominal adhesions in the right upper quadrant. Treatment: Laparoscopic exam with extensive lysis of adhesions with open laparotomy and segmental small bowel resection In your professional opinion, can you please further clarify the site of dissection of the omentum? Greater Omentum Lesser Omentum Other Unable to determine Please document as am addendum to your operative note in order to capture severity of illness and risk of mortality, and to accurately code this procedure. FYI: Press F11 to launch patient chart. MARISOL
[2016-12-16 17:21] LABS: Glucose,Whole Blood 142 mg/dL (75-99)
[2016-12-16] MEDS: SODIUM CHLORIDE 0.9% 1,000 ML IV SCH (19:53)
[2016-12-16 19:56] LABS: Glucose,Whole Blood 111 mg/dL (75-99)
[2016-12-17 07:01] LABS: Glucose,Whole Blood 114 mg/dL (75-99)
[2016-12-17 07:30] LABS: Anion Gap 7 mmol/L; Blood Urea Nitrogen 10 mg/dL (7-17); Calcium 8.1 mg/dL (8.4-10.2); Carbon Dioxide 28 mmol/L (22-30); Chloride 110 mmol/L (98-107); Glucose 109 mg/dL (74-99); Non-African American GFR(MDRD) >60 (>60 ml/min/1.73 sqM); Potassium 3.4 mmol/L (3.5-5.1); Sodium 145 mmol/L (137-145)
--- NOTE | 2016-12-17 08:06 | P.PN ---
Progress Note - Text The patient is awake alert in no distress. Passed a [place] flatus. Does feel a little hungry. On examination she is afebrile. Vitals are stable. Good urine output. Abdomen is fairly soft with minimal distention. Dressings looked intact. Potassium is 3.4. Impression progressively improving her postop course status post laparoscopic exam lysis of adhesions with the segmental small bowel resection. Recommendation we'll clamp NG tube. If tolerated DC it and started on clear liquid diet.
[2016-12-17] MEDS: INSULIN LISPRO (humaLOG) 300 UNIT/3 ML VIAL SQ SCH ×4 (08:53→21:55)
[2016-12-17] MEDS: ENALAPRILAT 1.25 MG/ML 1 ML VIAL IVP PRN (08:56)
[2016-12-17] MEDS: PANTOPRAZOLE 40 MG/10 ML VIAL IVP SCH (08:56)
[2016-12-17] MEDS: HEPARIN SODIUM,PORCINE 5,000 UNIT/ML 1 ML VIAL SQ SCH ×2 (08:56→21:54)
[2016-12-17 11:18] LABS: Glucose,Whole Blood 118 mg/dL (75-99)
[2016-12-17] MEDS ORDERED: hydrALAZINE HCL 20 MG/ML 1 ML VIAL IVP PRN (12:41)
[2016-12-17] MEDS ORDERED: BISACODYL 10 MG SUPP RECTAL STA (12:41)
--- NOTE | 2016-12-17 14:22 | P.PN ---
Subjective 76-year-old female in my office patient is known to have history of kidney cancer post right sided nephrectomy history of bladder cancer post surgery history of type 2 diabetes hypertension hyperlipidemia multiple abdominal surgery. Patient presented to demurs department on 12/11/2016 with severe abdominal pain with nausea and vomiting with x-ray showed partial obstruction patient was admitted to the hospital seen general surgery had an NG tube continue hydration and pain management patient abdominal is very soft currently but she is not having any bowel movement she still have NG tube in was evaluated today with Dr. Salazar and repeat another x-ray if no recovery from partial obstruction the next 48 hours patient might require to go for surgery. 12/13/2016 she is feeling slightly better continue to have an NG tube her x-ray did not show much improvement still showing obstruction and patient most likely need to have surgery. Able to ambulate slightly her blood pressures under control and lab values and show major abnormality. 12/14: She remains without bowel movement or gas. She continues with same abdominal pain with no significant improvement. Abdominal x-ray this morning shows persistent nonspecific gas pattern with contrast in the colon. Partial bowel obstruction remains in the differential. Dr. Salazar is planning for surgical intervention today. 12/15: Patient underwent laparoscopic exam with extensive lysis of adhesions with open laparotomy and segmental small bowel resection secondary to small bowel obstruction secondary to intra-abdominal adhesions in the right upper quadrant. Patient has had no postop complications. Hemoglobin stable at 13.7. Potassium will be replaced. Fleming catheter remains in place. Patient has not had a bowel movement and no flatus. 12/16: Patient remains with NG tube in place. She is hoping that this will be removed tomorrow. No bowel movement, no flatus. She is found ambulating in her room without difficulty. No lightheadedness or dizziness. Blood sugars are running 117-147. Potassium will be replaced. Diet is nothing by mouth with ice chips, popsicles and chewing gum. 12/17: Patient has passed flatus, no bowel movement. NG tube was clamped this morning and may be discontinued later today. Blood pressure remains elevated and hydralazine IV also ordered. Patient will be able to resume her home blood pressure medications later today if NG tube was discontinued. Dulcolax suppository added Objective - Vital Signs Vital signs: Vital Signs Temp 97.2 F L 12/17/16 07:00 Pulse 92 12/17/16 08:00 Resp 16 12/17/16 08:00 BP 180/112 12/17/16 07:00 Pulse Ox 91 L 12/17/16 07:00 Intake & Output 12/16/16 12/17/16 12/17/16 18:59 06:59 18:59 Intake Total 1300 3500 Output Total 1600 2600 Balance -300 900 Weight 88.451 kg 88.451 kg Intake: IV 1920 Sodium Chloride 0.9% 1, 1920 000 ml @ 120 mls/hr IV . Q8H20M [facility] Rx#:[id number] Intake, IV Titration 700 300 Amount Potassium Chloride 20 meq 100 300 Lidocaine 2% Inj 20 mg In Sodium Chloride 0.9% 100 ml @ 55.5 mls/hr IVPB Q2HR [facility] Rx#:[id number] Sodium Chloride 0.9% 50 600 ml As IV .STK-MED ONE with ceFAZolin 2,000 mg Rx#:[id number] Oral 600 1280 Output: Gastric Drainage 900 Urine 1600 1700 Other: Voiding Method Toilet Toilet Toilet # Voids 4 4 1 - Exam General appearance: Present: cooperative, disheveled, no acute distress. Absent : average body habitus, mild distress, morbidly obese, obese, severe distress, thin - EENT Eyes: Present: normal appearance. Absent: abnormal pupil, anicteric sclerae, disc margins sharp, edentulous, EOMI, PERRLA, fundus normal, photophobia, dentition normal, poor dentition, ptosis, scleral icterus ENT: Present: hard of hearing, normal oropharynx. Absent: hearing grossly normal, NA/AT, other, pharyngeal erythema, thrush, tonsillar exudates, tonsillar swelling Ears: bilateral: normal - Neck Neck: Present: normal ROM. Absent: lymphadenopathy, other, rigidity, stridor, thyromegaly Carotids: bilateral: upstroke normal Thyroid: bilateral: normal size - Respiratory Respiratory: bilateral: CTA, diminished - Cardiovascular Rhythm: irregularly irregular Heart sounds: normal: S1, S2 Abnormal Heart Sounds: Present: systolic murmur - Gastrointestinal General gastrointestinal: Present: decreased bowel sounds, tenderness. Absent: absent bowel sounds, distended, hepatomegaly, hyperactive bowel sounds, normal bowel sounds, organomegaly, rigid, scaphoid, soft, splenomegaly, umbilical hernia, ventral hernia - Integumentary Integumentary: Present: pale, rash. Absent: calor, cellulitis, cyanotic, decreased turgor, flushed, jaundiced, normal, normal turgor, ulcer - Neurologic Neurologic: Present: CNII-XII intact - Musculoskeletal Musculoskeletal: Present: gait normal, generalized weakness, strength equal bilaterally - Psychiatric Psychiatric: Present: A&O x's 3, appropriate affect - Labs CBC & Chem 7: 12/16/16 07:01 12/17/16 06:35 Labs: Abnormal Lab Results - Last 24 Hours (Table) 12/16/16 12/16/16 12/16/16 Range/Units 11:47 17:10 19:54 Potassium (3.5-5.1) mmol/L Chloride (98-107) mmol/L Glucose (74-99) mg/dL POC Glucose (mg/dL) 147 H 142 H 111 H (75-99) mg/dL Calcium (8.4-10.2) mg/dL 12/17/16 12/17/16 Range/Units 06:35 06:55 Potassium 3.4 L (3.5-5.1) mmol/L Chloride 110 H (98-107) mmol/L Glucose 109 H (74-99) mg/dL POC Glucose (mg/dL) 114 H (75-99) mg/dL Calcium 8.1 L (8.4-10.2) mg/dL Assessment and Plan Plan: 1 acute abdominal pain status post laparoscopic exam with extensive lysis of adhesions with open laparotomy and segmental small bowel resection Continue NG tube currently clamped, continue pain management hydration. 2 partial bowel obstruction, continue as in #1. 3 hypertension urgent: Patient is not able to take any her oral meds will be switch patient to Catapres patch TTS 1 for now and IV medication with Vasotec or eye drowsing. If blood pressure is higher with switch her [id number] to TTS 2 4 abnormal liver function test: Repeat liver function tests daily. 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 6 type 2 diabetes: On Accu-Chek with sliding scales coverage metformin has been held for now. 7 pain management on Dilaudid IV as needed. 8 intractable nausea: Patient still on Zofran Will add Transderm scopolamine patch. 9 GI prophylaxis: Continue patient on enteral prozone IV. CODE STATUS: Full code. Impression and plan of care have been directed as dictated by the signing physician. Abby Wynn nurse practitioner acting as scribe for signing physician.
[2016-12-17 16:41] LABS: Glucose,Whole Blood 160 mg/dL (75-99)
[2016-12-17] MEDS ORDERED: CALCIUM CARBONATE 500 MG CHEWABLE PO PRN (17:55)
[2016-12-17 21:22] LABS: Glucose,Whole Blood 170 mg/dL (75-99)
[2016-12-17] MEDS: metFORMIN 500 MG TAB PO SCH (21:52)
[2016-12-17] MEDS: cloNIDine HCL 0.1 MG TAB PO SCH (21:52)
[2016-12-17] MEDS: CALCIUM CARBONATE 500 MG CHEWABLE PO PRN (21:53)
[2016-12-17] MEDS: SODIUM CHLORIDE 0.9% 1,000 ML IV SCH ×3 (23:00→23:03)
[2016-12-18] MEDS: SODIUM CHLORIDE 0.9% 1,000 ML IV SCH ×3 (06:24→22:37)
[2016-12-18 07:23] LABS: Glucose,Whole Blood 97 mg/dL (75-99)
[2016-12-18] MEDS: INSULIN LISPRO (humaLOG) 300 UNIT/3 ML VIAL SQ SCH ×4 (07:47→22:33)
[2016-12-18] MEDS: HEPARIN SODIUM,PORCINE 5,000 UNIT/ML 1 ML VIAL SQ SCH ×2 (08:27→22:35)
[2016-12-18] MEDS: PANTOPRAZOLE 40 MG/10 ML VIAL IVP SCH (08:27)
[2016-12-18] MEDS: metFORMIN 500 MG TAB PO SCH ×2 (08:27→22:35)
[2016-12-18] MEDS: cloNIDine HCL 0.1 MG TAB PO SCH ×2 (08:27→22:35)
[2016-12-18] MEDS: PANTOPRAZOLE 40 MG TABLET PO SCH (09:07)
[2016-12-18] MEDS: TRIAMTERENE-HCTZ 37.5-25MG 1 EACH TAB PO SCH (11:02)
[2016-12-18] MEDS: SCOPOLAMINE 1.5MG/72HR PATCH TRANSDERM SCH (11:02)
[2016-12-18] MEDS: METOPROLOL SUCCINATE (ER) 25 MG TAB.ER.24H PO SCH (11:02)
[2016-12-18] MEDS: CALCIUM CARBONATE 500 MG CHEWABLE PO PRN ×2 (11:02→17:26)
[2016-12-18 12:07] LABS: Glucose,Whole Blood 116 mg/dL (75-99)
--- NOTE | 2016-12-18 13:58 | P.PN ---
Subjective 76-year-old female in my office patient is known to have history of kidney cancer post right sided nephrectomy history of bladder cancer post surgery history of type 2 diabetes hypertension hyperlipidemia multiple abdominal surgery. Patient presented to demurs department on 12/11/2016 with severe abdominal pain with nausea and vomiting with x-ray showed partial obstruction patient was admitted to the hospital seen general surgery had an NG tube continue hydration and pain management patient abdominal is very soft currently but she is not having any bowel movement she still have NG tube in was evaluated today with Dr. Salazar and repeat another x-ray if no recovery from partial obstruction the next 48 hours patient might require to go for surgery. 12/13/2016 she is feeling slightly better continue to have an NG tube her x-ray did not show much improvement still showing obstruction and patient most likely need to have surgery. Able to ambulate slightly her blood pressures under control and lab values and show major abnormality. 12/14: She remains without bowel movement or gas. She continues with same abdominal pain with no significant improvement. Abdominal x-ray this morning shows persistent nonspecific gas pattern with contrast in the colon. Partial bowel obstruction remains in the differential. Dr. Salazar is planning for surgical intervention today. 12/15: Patient underwent laparoscopic exam with extensive lysis of adhesions with open laparotomy and segmental small bowel resection secondary to small bowel obstruction secondary to intra-abdominal adhesions in the right upper quadrant. Patient has had no postop complications. Hemoglobin stable at 13.7. Potassium will be replaced. Fleming catheter remains in place. Patient has not had a bowel movement and no flatus. 12/16: Patient remains with NG tube in place. She is hoping that this will be removed tomorrow. No bowel movement, no flatus. She is found ambulating in her room without difficulty. No lightheadedness or dizziness. Blood sugars are running 117-147. Potassium will be replaced. Diet is nothing by mouth with ice chips, popsicles and chewing gum. 12/17: Patient has passed flatus, no bowel movement. NG tube was clamped this morning and may be discontinued later today. Blood pressure remains elevated and hydralazine IV also ordered. Patient will be able to resume her home blood pressure medications later today if NG tube was discontinued. Dulcolax suppository added 12/18: Patient has had a bowel movement last evening and diet was advanced by Dr. Salazar this morning. We will plan to advance her diet to regular she is tolerating well and she is very hungry and anxious to eat. Anticipate possible discharge by tomorrow. Objective - Vital Signs Vital signs: Vital Signs Temp 97.7 F 12/18/16 07:00 Pulse 84 12/18/16 07:00 Resp 16 12/18/16 07:00 BP 146/78 12/18/16 07:00 Pulse Ox 94 L 12/18/16 07:00 Intake & Output 12/17/16 12/18/16 12/18/16 18:59 06:59 18:59 Intake Total 900 300 Output Total 2200 Balance -1300 300 Weight 88.451 kg Intake: IV 600 Sodium Chloride 0.9% 1, 600 000 ml @ 120 mls/hr IV . Q8H20M [facility] Rx#:[id number] Oral 300 300 Output: Urine 2200 Other: Voiding Method Toilet Toilet Toilet # Voids 4 1 # Bowel Movements 2 - Exam General appearance: Present: cooperative, disheveled, no acute distress. Absent : average body habitus, mild distress, morbidly obese, obese, severe distress, thin - EENT Eyes: Present: normal appearance. Absent: abnormal pupil, anicteric sclerae, disc margins sharp, edentulous, EOMI, PERRLA, fundus normal, photophobia, dentition normal, poor dentition, ptosis, scleral icterus ENT: Present: hard of hearing, normal oropharynx. Absent: hearing grossly normal, NA/AT, other, pharyngeal erythema, thrush, tonsillar exudates, tonsillar swelling Ears: bilateral: normal - Neck Neck: Present: normal ROM. Absent: lymphadenopathy, other, rigidity, stridor, thyromegaly Carotids: bilateral: upstroke normal Thyroid: bilateral: normal size - Respiratory Respiratory: bilateral: CTA, diminished - Cardiovascular Rhythm: irregularly irregular Heart sounds: normal: S1, S2 Abnormal Heart Sounds: Present: systolic murmur - Gastrointestinal General gastrointestinal: Present: normal bowel sounds. Absent: absent bowel sounds, distended, hepatomegaly, hyperactive bowel sounds, organomegaly, rigid, scaphoid, soft, splenomegaly, umbilical hernia, ventral hernia - Integumentary Integumentary: Present: pale, rash. Absent: calor, cellulitis, cyanotic, decreased turgor, flushed, jaundiced, normal, normal turgor, ulcer - Neurologic Neurologic: Present: CNII-XII intact - Musculoskeletal Musculoskeletal: Present: gait normal, generalized weakness, strength equal bilaterally - Psychiatric Psychiatric: Present: A&O x's 3, appropriate affect - Labs CBC & Chem 7: 12/16/16 07:01 12/17/16 06:35 Labs: Abnormal Lab Results - Last 24 Hours (Table) 12/17/16 12/17/16 12/17/16 Range/Units 11:12 16:36 21:21 POC Glucose (mg/dL) 118 H 160 H 170 H (75-99) mg/dL Assessment and Plan Plan: 1 acute abdominal pain status post laparoscopic exam with extensive lysis of adhesions with open laparotomy and segmental small bowel resection Continue NG tube currently clamped, continue pain management hydration. 2 partial bowel obstruction, continue as in #1. 3 hypertension urgent: Patient is not able to take any her oral meds will be switch patient to Catapres patch TTS 1 for now and IV medication with Vasotec or eye drowsing. If blood pressure is higher with switch her [id number] to TTS 2 4 abnormal liver function test: Repeat liver function tests daily. 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 6 type 2 diabetes: On Accu-Chek with sliding scales coverage metformin has been held for now. 7 pain management on Dilaudid IV as needed. 8 intractable nausea: Patient still on Zofran Will add Transderm scopolamine patch. 9 GI prophylaxis: Continue patient on enteral prozone IV. CODE STATUS: Full code. Discharge plan: Home most likely tomorrow Impression and plan of care have been directed as dictated by the signing physician. Abby Wynn nurse practitioner acting as scribe for signing physician.
[2016-12-18 16:59] LABS: Glucose,Whole Blood 160 mg/dL (75-99)
--- NOTE | 2016-12-18 17:18 | P.PN ---
Progress Note - Text The patient is doing very well. She tolerated a regular breakfast and lunch today. Had a bowel movement passing a lot of flatus. No nausea or vomiting. She is the about 5-6 days post the laparoscopic lysis of adhesions and open segmental small bowel resection. The adhesions were fairly diffuse but mostly in the right upper quadrant area where the bowel was obstructed the. On examination she is afebrile vitals are stable. Abdomen is very soft and benign. Dressings are removed today. She may shower. Monitor output. Probably can be discharged tomorrow. Prescription for [place] and Prilosec will be given prescription she has some heartburn.
[2016-12-18 22:08] LABS: Glucose,Whole Blood 149 mg/dL (75-99)
[2016-12-19] MEDS: SODIUM CHLORIDE 0.9% 1,000 ML IV SCH (06:06)
[2016-12-19 07:26] VITALS: RESP 16
[2016-12-19 07:30] LABS: Glucose,Whole Blood 105 mg/dL (75-99)
[2016-12-19 07:45] VITALS: BP 133/69; PULSE 77; TEMP 97.2
[2016-12-19] MEDS: INSULIN LISPRO (humaLOG) 300 UNIT/3 ML VIAL SQ SCH (07:47)
[2016-12-19] MEDS: PANTOPRAZOLE 40 MG TABLET PO SCH (07:49)
[2016-12-19] MEDS: METOPROLOL SUCCINATE (ER) 25 MG TAB.ER.24H PO SCH (07:49)
[2016-12-19] MEDS: metFORMIN 500 MG TAB PO SCH (07:49)
[2016-12-19] MEDS: cloNIDine HCL 0.1 MG TAB PO SCH (07:49)
[2016-12-19] MEDS: HEPARIN SODIUM,PORCINE 5,000 UNIT/ML 1 ML VIAL SQ SCH (07:49)
[2016-12-19] MEDS: TRIAMTERENE-HCTZ 37.5-25MG 1 EACH TAB PO SCH (07:49)
--- NOTE | 2016-12-19 10:43 | P.PN ---
Progress Note - Text The patient is doing well. Tolerating a diet without nausea or vomiting. Having bowel movements. VSSA Abdomen: soft, positive bowel sounds, incision healing without cellulitis A: S/P small bowel resection P: surgically stable for discharge. Follow up with Dr Salazar next week for staple removal.
--- NOTE | 2016-12-19 13:06 | P.PN ---
Subjective Principal diagnosis: Abdominal pain, partial obstruction, history of renal cell CA post nephrectomy, hypertension, type 2 diabetes, hyperlipidemia. 76-year-old female in my office patient is known to have history of kidney cancer post right sided nephrectomy history of bladder cancer post surgery history of type 2 diabetes hypertension hyperlipidemia multiple abdominal surgery. Patient presented to demurs department on 12/11/2016 with severe abdominal pain with nausea and vomiting with x-ray showed partial obstruction patient was admitted to the hospital seen general surgery had an NG tube continue hydration and pain management patient abdominal is very soft currently but she is not having any bowel movement she still have NG tube in was evaluated today with Dr. Salazar and repeat another x-ray if no recovery from partial obstruction the next 48 hours patient might require to go for surgery. 12/13/2016 she is feeling slightly better continue to have an NG tube her x-ray did not show much improvement still showing obstruction and patient most likely need to have surgery. Able to ambulate slightly her blood pressures under control and lab values and show major abnormality. 12/19/2016: NG tube is out patient diet and nutrition is back to normal, had normal bowel movement since her surgery with NG tube out she is moving around doing very well. Was seen general surgery and planning to send her home today, which I agree should not be a problem. Objective - Vital Signs Vital signs: Vital Signs Temp 97.2 F L 12/19/16 07:00 Pulse 77 12/19/16 07:00 Resp 16 12/19/16 07:00 BP 133/69 12/19/16 07:00 Pulse Ox 93 L 12/19/16 07:00 Intake & Output 12/18/16 12/19/16 12/19/16 18:59 06:59 18:59 Intake Total 300 180 Output Total 600 Balance -300 180 Weight 88.451 kg Intake: Oral 300 180 Output: Urine 600 Other: Voiding Method Toilet Toilet # Voids 3 3 # Bowel Movements 1 - Constitutional General appearance: Present: cooperative, no acute distress. Absent: average body habitus, disheveled, mild distress, morbidly obese, obese, severe distress , thin - EENT Eyes: Present: normal appearance. Absent: abnormal pupil, anicteric sclerae, disc margins sharp, edentulous, EOMI, PERRLA, fundus normal, photophobia, dentition normal, poor dentition, ptosis, scleral icterus ENT: Present: normal oropharynx. Absent: hard of hearing, hearing grossly normal, NA/AT, other, pharyngeal erythema, thrush, tonsillar exudates, tonsillar swelling Ears: bilateral: normal - Neck Neck: Present: normal ROM. Absent: lymphadenopathy, other, rigidity, stridor, thyromegaly Carotids: bilateral: upstroke normal Thyroid: bilateral: normal size - Respiratory Respiratory: bilateral: CTA, diminished - Cardiovascular Rhythm: regular Heart sounds: normal: S1, S2 Abnormal Heart Sounds: Present: systolic murmur, S3 Gallop - Gastrointestinal Gastrointestinal Comment(s): Incision from her surgical site looks fine with no sign of induration infection noted dehiscing are abnormality. General gastrointestinal: Present: decreased bowel sounds, soft. Absent: absent bowel sounds, distended, hepatomegaly, hyperactive bowel sounds, normal bowel sounds, organomegaly, rigid, scaphoid, splenomegaly, tenderness, umbilical hernia, ventral hernia - Integumentary Integumentary: Present: normal, pale, rash. Absent: calor, cellulitis, cyanotic , decreased turgor, flushed, jaundiced, normal turgor, ulcer - Neurologic Neurologic: Present: CNII-XII intact - Musculoskeletal Musculoskeletal: Present: gait normal, generalized weakness, strength equal bilaterally. Absent: right sided weakness, left sided weakness - Psychiatric Psychiatric: Present: A&O x's 3, appropriate affect. Absent: intact judgment & insight - Labs CBC & Chem 7: 12/16/16 07:01 12/17/16 06:35 Labs: Abnormal Lab Results - Last 24 Hours (Table) 12/18/16 12/18/16 12/19/16 Range/Units 16:53 22:05 07:15 POC Glucose (mg/dL) 160 H 149 H 105 H (75-99) mg/dL Assessment and Plan Plan: 1 acute abdominal pain: Secondary to bowel obstruction, post surgery NG tube has been out patient is doing very well still be able to be discharged home. 2 partial bowel obstruction: Had to go for surgery for lysis of adhesion and small resection. 3 hypertension more urgent: Patient is back on her oral meds doing very well. 4 abnormal liver function test: Repeat liver function tests daily. 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 6 type 2 diabetes: On Accu-Chek with sliding scales coverage metformin has been held for now. 7 pain management on Dilaudid IV as needed. 8 intractable nausea: Patient still on Zofran Will add Transderm scopolamine patch. Discharge planning: Patient is going home today.
--- NOTE | 2016-12-22 14:04 | P.DS ---
Providers Date of admission: 12/11/16 15:57 Expected date of discharge: 12/19/16 Attending physician: Princess Montes Consults: 12/11/16 15:04 Consult Physician Stat Consulting Provider: Princess Montes Consult Reason/Comments: Diabetes, Medical management, Small bowel obstruction Do you want consulting provider notified?: Already Contacted 12/11/16 17:56 Consult Physician Routine Consulting Provider: Juancarlos Salazar Consult Reason/Comments: SBO Do you want consulting provider notified?: Already Contacted Primary care physician: [facility] Course: 76-year-old female in my office patient is known to have history of kidney cancer post right sided nephrectomy history of bladder cancer post surgery history of type 2 diabetes hypertension hyperlipidemia multiple abdominal surgery. Patient presented to demurs department on 12/11/2016 with severe abdominal pain with nausea and vomiting with x-ray showed partial obstruction patient was admitted to the hospital seen general surgery had an NG tube continue hydration and pain management patient abdominal is very soft currently but she is not having any bowel movement she still have NG tube in was evaluated today with Dr. Salazar and repeat another x-ray if no recovery from partial obstruction the next 48 hours patient might require to go for surgery. 12/13/2016 she is feeling slightly better continue to have an NG tube her x-ray did not show much improvement still showing obstruction and patient most likely need to have surgery. Able to ambulate slightly her blood pressures under control and lab values and show major abnormality. 12/14: She remains without bowel movement or gas. She continues with same abdominal pain with no significant improvement. Abdominal x-ray this morning shows persistent nonspecific gas pattern with contrast in the colon. Partial bowel obstruction remains in the differential. Dr. Salazar is planning for surgical intervention today. 12/15: Patient underwent laparoscopic exam with extensive lysis of adhesions with open laparotomy and segmental small bowel resection secondary to small bowel obstruction secondary to intra-abdominal adhesions in the right upper quadrant. Patient has had no postop complications. Hemoglobin stable at 13.7. Potassium will be replaced. Fleming catheter remains in place. Patient has not had a bowel movement and no flatus. 12/16: Patient remains with NG tube in place. She is hoping that this will be removed tomorrow. No bowel movement, no flatus. She is found ambulating in her room without difficulty. No lightheadedness or dizziness. Blood sugars are running 117-147. Potassium will be replaced. Diet is nothing by mouth with ice chips, popsicles and chewing gum. 12/17: Patient has passed flatus, no bowel movement. NG tube was clamped this morning and may be discontinued later today. Blood pressure remains elevated and hydralazine IV also ordered. Patient will be able to resume her home blood pressure medications later today if NG tube was discontinued. Dulcolax suppository added 12/18: Patient has had a bowel movement last evening and diet was advanced by Dr. Salazar this morning. We will plan to advance her diet to regular she is tolerating well and she is very hungry and anxious to eat. Anticipate possible discharge by tomorrow.12/19/2016: NG tube is out patient diet and nutrition is back to normal, had normal bowel movement since her surgery with NG tube out she is moving around doing very well. Was seen general surgery and planning to send her home today, which I agree should not be a problem. Discharge diagnoses: 1 acute abdominal pain status post laparoscopic exam with extensive lysis of adhesions with open laparotomy and segmental small bowel resection 2 partial bowel obstruction 3 hypertension urgent 4 abnormal liver function test 5 history of renal cell cancer and bladder cancer both are in remission 6 type 2 diabetes 7 pain management 8 intractable nausea Discharge plan: Home Impression and plan of care have been directed as dictated by the signing physician. Abby Wynn nurse practitioner acting as scribe for signing physician. Patient Condition at Discharge: Good Plan - Discharge Summary New Discharge Prescriptions: New Hydrocodone/Acetaminophen [[place] 5-325] 1 each PO Q4HR PRN #20 tab PRN Reason: Moderate Pain HYDROcodone/APAP 5-325MG [[place] 5-325] 1 tab PO Q6HR PRN #20 tab PRN Reason: Pain No Action metFORMIN HCL [Glucophage] 500 mg PO BID Lactulose 20 gm PO DAILY Triamterene-Hctz 37.5-25Mg [Maxzide 37.5-25] 1 tab PO DAILY Metoclopramide [Reglan] 5 mg PO DAILY cloNIDine HCL [Catapres] 0.1 mg PO BID Potassium Chloride [K-Tab ER] 10 meq PO DAILY Tolterodine Tartrate [Detrol LA] 4 mg PO BID Omeprazole [PriLOSEC] 40 mg PO DAILY Metoprolol Succinate [Toprol XL] 25 mg PO DAILY Calcium Carbonate [Calcium] 600 mg PO BID Multivitamins, Thera [Multivitamin (formulary)] 1 tab PO DAILY Fish Oil/Dha/Epa [Fish Oil 1,200 mg Fish Oil] 1 cap PO BID Discharge Medication List Calcium Carbonate [Calcium] 600 mg PO BID 12/11/16 [History] Fish Oil/Dha/Epa [Fish Oil 1,200 mg Fish Oil] 1 cap PO BID 12/11/16 [History] Lactulose 20 gm PO DAILY 12/11/16 [History] Metoclopramide [Reglan] 5 mg PO DAILY 12/11/16 [History] Metoprolol Succinate [Toprol XL] 25 mg PO DAILY 12/11/16 [History] Multivitamins, Thera [Multivitamin (formulary)] 1 tab PO DAILY 12/11/16 [History ] Omeprazole [PriLOSEC] 40 mg PO DAILY 12/11/16 [History] Potassium Chloride [K-Tab ER] 10 meq PO DAILY 12/11/16 [History] Tolterodine Tartrate [Detrol LA] 4 mg PO BID 12/11/16 [History] Triamterene-Hctz 37.5-25Mg [Maxzide 37.5-25] 1 tab PO DAILY 12/11/16 [History] cloNIDine HCL [Catapres] 0.1 mg PO BID 12/11/16 [History] metFORMIN HCL [Glucophage] 500 mg PO BID 12/11/16 [History] HYDROcodone/APAP 5-325MG [[place] 5-325] 1 tab PO Q6HR PRN #20 tab 12/18/16 [Rx] Hydrocodone/Acetaminophen [[place] 5-325] 1 each PO Q4HR PRN #20 tab 12/18/16 [Rx] Follow up Appointment(s)/Referral(s): Hiram Rg MD [Primary Care Provider] - 1-2 days Juancarlos Salazar MD [STAFF PHYSICIAN] - 12/24/16 Activity/Diet/Wound Care/Special Instructions: Soft diet, ambulate 4 to 5 times a day. May shower. No heavy lifting for a month. Discharge Disposition: HOME SELF-CARE
== END 2016-12-19 13:13 | disposition home or self-care (01) | DRG 331 ==
LOC: EC 11:01 → 3SUR 15:57
PROVIDERS: ADMIT Family Medicine; ATTEND Family Medicine
PROC: 0D9670Z Drainage of Stomach with Drainage Device, Via Natural or Artificial Opening (ICD-10-PCS; 2016-12-11)
PROC: 0DN84ZZ Release Small Intestine, Percutaneous Endoscopic Approach (ICD-10-PCS; 2016-12-14)
PROC: 0DNS4ZZ (ICD-10-PCS; 2016-12-14)
PROC: 0DB80ZZ Excision of Small Intestine, Open Approach (ICD-10-PCS; principal; 2016-12-14 10:15)
DX: K56.5 Intestinal adhesions [bands] with obstruction (postinfection) (principal); E86.0 Dehydration; E11.9 Type 2 diabetes mellitus without complications; I10 Essential (primary) hypertension; I16.0 Hypertensive urgency; K57.30 Diverticulosis of large intestine without perforation or abscess without bleeding; E78.5 Hyperlipidemia, unspecified; R12 Heartburn; E66.3 Overweight; R79.89 Other specified abnormal findings of blood chemistry; Z79.84 Long term (current) use of oral hypoglycemic drugs; Z79.899 Other long term (current) drug therapy; Z85.528 Personal history of other malignant neoplasm of kidney; Z90.5 Acquired absence of kidney; Z90.49 Acquired absence of other specified parts of digestive tract; Z87.891 Personal history of nicotine dependence; Z90.710 Acquired absence of both cervix and uterus; Z85.51 Personal history of malignant neoplasm of bladder; Z53.31 Laparoscopic surgical procedure converted to open procedure; Z90.722 Acquired absence of ovaries, bilateral; Z90.79 Acquired absence of other genital organ(s)
CPT/HCPCS: 36415; 43753; 74000; 74020; 74176; 80048; 80051; 80053; 81001; 82150; 83036; 83690; 83735; 84100; 85025; 85027; 88307; 93005; 96361; 96374; 99285

== ENCOUNTER → 2017-05-31 | Outpatient (CLI) | payer MEDICARE, OTHER ==
--- NOTE | 2017-06-02 07:48 | MM ---
Reason for exam: screening (asymptomatic). Last mammogram was performed 1 year and 1 month ago. History: Patient is postmenopausal and has history of other cancer at age 61. Took estrogen for 22 years. Physical Findings: A clinical breast exam by your physician is recommended on an annual basis and results should be correlated with mammographic findings. MG Screening Mammo w CAD Bilateral CC and MLO view(s) were taken. Prior study comparison: May 06, 2016, bilateral MG screening mammo w CAD. April 29, 2015, bilateral MG screening mammo w CAD. There are scattered fibroglandular densities. No suspicious abnormality. No significant changes when compared with prior studies. ASSESSMENT: Negative, BI-RAD 1 RECOMMENDATION: Routine screening mammogram of both breasts in 1 year.
== END | disposition home or self-care (01) ==
LOC: RADMAMWWP 10:44
PROVIDERS: ATTEND Internal Medicine Geriatric Medicine
DX: Z12.31 Encounter for screening mammogram for malignant neoplasm of breast (principal)
CPT/HCPCS: 77067

== ENCOUNTER → 2018-06-30 | Outpatient (CLI) | payer MEDICARE, OTHER ==
--- NOTE | 2018-07-01 10:14 | MM ---
Reason for exam: screening (asymptomatic). Last mammogram was performed 1 year and 1 month ago. History: Patient is postmenopausal and has history of other cancer at age 61. Took estrogen for 22 years. Physical Findings: A clinical breast exam by your physician is recommended on an annual basis and results should be correlated with mammographic findings. MG 3D Screening Mammo W/Cad Bilateral CC and MLO view(s) were taken. Prior study comparison: May 31, 2017, bilateral MG screening mammo w CAD. May 06, 2016, bilateral MG screening mammo w CAD. There are scattered fibroglandular densities. Benign appearing bilateral calcifications. There is chronic nodularity in the right breast. No significant changes when compared with prior studies. ASSESSMENT: Benign, BI-RAD 2 RECOMMENDATION: Routine screening mammogram of both breasts in 1 year.
== END | disposition home or self-care (01) ==
LOC: RADMAMWWP 14:22
PROVIDERS: ATTEND Internal Medicine Geriatric Medicine
DX: Z12.31 Encounter for screening mammogram for malignant neoplasm of breast (principal)
CPT/HCPCS: 77063; 77067

== ENCOUNTER → 2019-09-26 | Outpatient (CLI) | payer MEDICARE, OTHER ==
--- NOTE | 2019-09-28 07:56 | MM ---
Reason for exam: screening (asymptomatic). Last mammogram was performed 1 year and 3 months ago. History: Patient is postmenopausal and has history of other cancer at age 61. Took estrogen for 22 years. Physical Findings: A clinical breast exam by your physician is recommended on an annual basis and results should be correlated with mammographic findings. MG 3D Screening Mammo W/Cad Bilateral CC and MLO view(s) were taken. Prior study comparison: June 30, 2018, bilateral MG 3d screening mammo w/cad. May 31, 2017, bilateral MG screening mammo w CAD. There are scattered fibroglandular densities. There are benign appearing vascular calcifications bilaterally. There is no discrete abnormality. ASSESSMENT: Benign, BI-RAD 2 RECOMMENDATION: Routine screening mammogram of both breasts in 1 year.
== END | disposition home or self-care (01) ==
LOC: RADMAMWWP 10:54
PROVIDERS: ATTEND Internal Medicine Geriatric Medicine
DX: Z12.31 Encounter for screening mammogram for malignant neoplasm of breast (principal)
CPT/HCPCS: 77063; 77067

== ENCOUNTER → 2020-10-15 | Outpatient (CLI) | payer MEDICARE, OTHER ==
--- NOTE | 2020-10-16 13:53 | MM ---
Reason for exam: screening (asymptomatic). Last mammogram was performed 1 year and 1 month ago. History: Patient is postmenopausal and has history of other cancer at age 61. Took estrogen for 22 years. Physical Findings: A clinical breast exam by your physician is recommended on an annual basis and results should be correlated with mammographic findings. MG 3D Screening Mammo W/Cad Bilateral CC and MLO view(s) were taken. Prior study comparison: September 26, 2019, bilateral MG 3d screening mammo w/cad. June 30, 2018, bilateral MG 3d screening mammo w/cad. There are scattered fibroglandular densities. There are benign appearing vascular calcifications bilaterally. No significant changes when compared with prior studies. ASSESSMENT: Benign, BI-RAD 2 RECOMMENDATION: Routine screening mammogram of both breasts in 1 year.
== END | disposition home or self-care (01) ==
LOC: RADMAMWWP 13:12
PROVIDERS: ATTEND Internal Medicine Geriatric Medicine
DX: Z12.31 Encounter for screening mammogram for malignant neoplasm of breast (principal)
CPT/HCPCS: 77063; 77067

== ENCOUNTER → 2021-10-23 | Outpatient (CLI) | payer MEDICARE, OTHER ==
--- NOTE | 2021-10-23 15:24 | BD ---
EXAMINATION TYPE: Axial Bone Density DATE OF EXAM: 10/23/2021 COMPARISON: NONE CLINICAL HISTORY: 81 years year old Female. ICD-10 CODE: M81.0 OSTEOPOROSIS Height: 63 Weight: 181.5 FRAX RISK QUESTIONS: Alcohol (3 or more units per day): no Family History (Parent hip fracture): no Glucocorticoids (More than 3mos): no (Ex: prednisone, prednisolone, methylprednisolone, dexamethasone, and hydrocortisone). History of Fracture in Adulthood: yes Secondary Osteoporosis: 1. Type 1 Diabetes: no 2. Hyperthyroidism: no 3. Menopause before 45: no 4. Malnutrition: no 5. Chronic liver disease: no Rheumatoid Arthritis: no Current Tobacco Use: no RISK FACTORS HISTORY OF: History of Wrist Fracture: left wrist When: 22 years ago Surgery to Spine/Hip(right/left)/Wrist (right/left): left wrist Family History of Osteoporosis: yes Active: no Diet low in dairy products/other sources of calcium: yes Postmenopausal woman: yes Lost more than 2 inches in height since high school: yes MEDICATIONS: Additional History: EXAM MEASUREMENTS: Bone mineral densitometry was performed using the [employer] System. Bone mineral density as measured about the Lumbar spine is: ----- L1-L4(G/cm2): 0.966 T Score Values are as follows: ----- L1: -1.4 ----- L2:-2.0 ----- L3: -1.5 ----- L4: -1.3 ----- L1-L4: -1.5 Bone mineral density has: decreased -4.2%% since study of: 05.06.2016 Bone mineral density about the R hip (g/cm2): 0.818 Bone mineral density about the L hip (g/cm2): 0.860 T Score values are as follows: -----R Neck: -1.6 -----L Neck: -1.3 -----R Total: -1.2 -----L Total: -0.6 Bone mineral density has: decreased -5.1 % since study of: 05.06.2016 FRAX%s: The graph provided illustrates a 18.6% chance for a major osteoporotic fx and a 4.4% chance f or the hips probability for fx in 10 years time. IMPRESSION: Osteopenia (T Score between -2.5 and -1). There is slightly increased risk of fracture and the patient may be considered for treatment. Re-Screen 2-5 years. NOTE: T-SCORE=SD OF THE YOUNG ADULT MEAN.
--- NOTE | 2021-10-24 14:50 | MM ---
Reason for Exam: Screening (asymptomatic). Last screening mammogram was performed 12 month(s) ago. Patient History: Menarche at age 11. First Full-Term at age 19. Left ovary removed at age 44. Right ovary removed at age 44. Hysterectomy at age 44. Postmenopausal. Other cancer, age 61. Estrogen for 22 years until age 67. Risk Values: Andreia 5 year model risk: 1.4%. NCI Lifetime model risk: 1.9%. Prior Study Comparison: 06/30/2018 Bilateral Screening Mammogram, [facility]. 09/26/2019 Bilateral Screening Mammogram, [facility]. 10/15/2020 Bilateral Screening Mammogram, [facility]. Tissue Density: There are scattered fibroglandular densities. Findings: Analyzed By CAD. Benign-appearing vascular calcification is present bilaterally. Chronic nodularities in the upper outer aspect right breast. No suspicious groups of microcalcifications, spiculated or lobular masses, architectural distortion or other secondary signs of malignancy are mammographically apparent. Overall Assessment: Benign, BI-RAD 2 Management: Screening Mammogram of both breasts in 1 year. A negative mammogram report should not preclude additional follow up of suspicious palpable abnormalities. Patient should continue monthly self breast exam. A clinical breast exam by your physician is recommended on an annual basis and results should be correlated with mammographic findings. Electronically signed and approved by: Graham Orta D.O. Radiologis
== END | disposition home or self-care (01) ==
LOC: RADMAMWWP 12:25
PROVIDERS: ATTEND Internal Medicine Geriatric Medicine
DX: Z12.31 Encounter for screening mammogram for malignant neoplasm of breast (principal); M81.0 Age-related osteoporosis without current pathological fracture
CPT/HCPCS: 77063; 77067; 77080

== ENCOUNTER → 2022-10-26 | Outpatient (CLI) | payer MEDICARE, OTHER ==
--- NOTE | 2022-10-28 08:05 | MM ---
Reason for Exam: Screening (asymptomatic). Last mammogram was performed 1 year(s) and 1 month(s) ago. Patient History: Menarche at age 11. First Full-Term at age 19. Left ovary removed at age 44. Right ovary removed at age 44. Hysterectomy at age 44. Postmenopausal. Other cancer, age 61. Estrogen for 22 years until age 67. Risk Values: Andreia 5 year model risk: 1.3%. NCI Lifetime model risk: 1.7%. Prior Study Comparison: 09/26/2019 Bilateral Screening Mammogram, [facility]. 10/15/2020 Bilateral Screening Mammogram, [facility]. 10/23/2021 Bilateral MG 3D screening mammo w/cad, [facility]. Tissue Density: There are scattered fibroglandular densities. Findings: Analyzed By CAD. There is no suspicious group of microcalcifications or new suspicious mass in either breast. Benign-appearing calcifications within both breasts. Overall Assessment: Benign, BI-RAD 2 Management: Screening Mammogram of both breasts in 1 year. A clinical breast exam by your physician is recommended on an annual basis and results should be correlated with mammographic findings. Note on Andreia scores and lifetime risk: 1. A Andreia score greater than 3% is considered moderate risk. If this is the case, consider specialist referral to assess eligibility for a risk reducing agent. If overall lifetime risk for the development of breast cancer is 20% or higher, the patient may qualify for future screening with alternating mammogram and breast MRI. Electronically signed and approved by: Edin Patel D.O.
== END | disposition home or self-care (01) ==
LOC: RADMAMWWP 13:22
PROVIDERS: ATTEND Internal Medicine Geriatric Medicine
DX: Z12.31 Encounter for screening mammogram for malignant neoplasm of breast (principal); Z78.0 Asymptomatic menopausal state
CPT/HCPCS: 77063; 77067

== ENCOUNTER → 2023-11-02 | Outpatient (CLI) | payer MEDICARE, OTHER ==
--- NOTE | 2023-11-07 16:34 | BD ---
EXAMINATION TYPE: Axial Bone Density DATE OF EXAM: 11/02/2023 CLINICAL HISTORY: 83 years old Female. ICD-10 CODE: M810 OSTEOPOROSIS Height: 61.6 Weight: 153 FRAX RISK QUESTIONS: History of Fracture in Adulthood: yes Secondary Osteoporosis: yes 3. Menopause before 45: hyst at 44-44 yrs old Current Tobacco Use: in the past, 24 yrs ago RISK FACTORS HISTORY OF: height loss, hx of ankle fracture as an adult, hx of kidney cancer and bladder cancer, diabetic, no m eds History of Wrist Fracture: left wrist, as an adult, with surgical repair MEDICATIONS: bp meds, cholesterol meds, calcium with d3, Thyroid Medications: yes, synthroid meds for about 3 yrs EXAM MEASUREMENTS: Bone mineral densitometry was performed using the [employer] System. Bone mineral density as measured about the Lumbar spine is: ----- L1-L4(G/cm2): 0.961 T Score Values are as follows: ----- L1: -2.0 ----- L2: -2.8 ----- L3: -1.0 ----- L4: -1.8 ----- L1-L4: -1.8 Z Score Values are as follows: ----- L1: -0.2 ----- L2: -1.1 ----- L3: 0.8 ----- L4: -0.1 ----- L1-L4: -0.1 Bone mineral density has: Decreased -3.5% since study of: 10.23.2021 Bone mineral density about the R hip (g/cm2): 0.717 Bone mineral density about the L hip (g/cm2): 0.817 T Score values are as follows: -----R Neck: -2.5 -----L Neck: -1.6 -----R Total: -2.3 -----L Total: -1.5 Z Score values are as follows: -----R Neck: -0.2 -----L Neck: 0.7 -----R Total: -0.2 -----L Total: 0.6 Bone mineral density has: Decreased -14.3% since study of: 10.23.2021 FRAX%s: The graph provided illustrates a 26.2% chance for a major osteoporotic fx and a 8.6% chance f or the hips probability for fx in 10 years time. IMPRESSION: Osteopenia (T Score between -2.5 and -1). There is slightly increased risk of fracture and the patient may be considered for treatment. Re-Screen 2-5 years. NOTE: T-SCORE=SD OF THE YOUNG ADULT MEAN.
--- NOTE | 2023-11-11 07:11 | MM ---
Reason for Exam: Screening (asymptomatic). Last screening mammogram was performed 12 month(s) ago. Patient History: Menarche at age 11. First Full-Term at age 19. Left ovary removed at age 44. Right ovary removed at age 44. Hysterectomy at age 44. Postmenopausal. Other cancer, age 61. Estrogen for 22 years until age 67. Risk Values: Andreia 5 year model risk: 1.3%. NCI Lifetime model risk: 1.4%. Prior Study Comparison: 10/15/2020 Bilateral Screening Mammogram, [facility]. 10/23/2021 Bilateral MG 3D screening mammo w/cad, [facility]. 10/26/2022 Bilateral MG 3D screening mammo w/cad, [facility]. Tissue Density: There are scattered areas of fibroglandular density. Findings: Analyzed By CAD. The pattern is symmetrical. No significant interval change is evident. Scattered benign calcifications are present. Vascular calcifications are present No suspicious groups of microcalcifications, spiculated or lobular masses, architectural distortion or other secondary signs of malignancy are mammographically apparent. Overall Assessment: Benign, BI-RAD 2 Management: Screening Mammogram of both breasts in 1 year. A negative mammogram report should not preclude additional follow up of suspicious palpable abnormalities. Patient should continue monthly self breast exam. A clinical breast exam by your physician is recommended on an annual basis and results should be correlated with mammographic findings. Note on Andreia scores and lifetime risk: 1. A Andreia score greater than 3% is considered moderate risk. If this is the case, consider specialist referral to assess eligibility for a risk reducing agent. 2. If overall lifetime risk for the development of breast cancer is 20% or higher, the patient may qualify for future screening with alternating mammogram and breast MRI. Electronically signed and approved by: Graham Orta D.O. Radiologis
== END | disposition home or self-care (01) ==
LOC: RADMAMWWP 13:08
PROVIDERS: ATTEND Internal Medicine Geriatric Medicine
DX: Z12.31 Encounter for screening mammogram for malignant neoplasm of breast (principal); M81.0 Age-related osteoporosis without current pathological fracture; R92.323 Mammographic fibroglandular density, bilateral breasts; M85.89 Other specified disorders of bone density and structure, multiple sites; Z78.0 Asymptomatic menopausal state
CPT/HCPCS: 77063; 77067; 77080